=== PATIENT | male | born 1995 | race Caucasian/White ===

== ENCOUNTER 2016-07-31 15:30 | Inpatient (IN) | payer OTHER ==
[~2016-07-31] VITALS: Ht 188 cm; Wt 80.9 kg
[~2016-07-31 15:30] MED LIST: Z.0.NO CURRENT MEDS
[2016-07-31 15:37] VITALS: BP 114/77; PULSE 142; RESP 20; TEMP 98.3; O2SAT 94
[2016-07-31] MEDS ORDERED: SUCR1TAB PO (16:28)
[2016-07-31] MEDS ORDERED: ESOM1CAP16 PO (16:28)
[2016-07-31] MEDS ORDERED: ZOFR8TAB PO (16:29)
[2016-07-31] MEDS ORDERED: SODIUM CHLOR 0.9% 1000 ML INJ 1,000 ML IV SCH (16:48)
--- NOTE | 2016-07-31 16:54 | PD ---
HPI Chief Complaint: Abdominal Pain Time Seen by Provider: 16:54 Travel History International Travel<30 days: No Contact w/Intl Traveler<30days: No Traveled to known affect area: No History of Present Illness HPI 21-year-old male with no significant medical history presents to emergency department for evaluation of abdominal pain mostly right lower quadrant, nausea , vomiting, and generalized weakness. Pt is accompanied by his mother and is stationed at an [employer] up in [place] and began having bloody bowel movements in May of this year. He underwent colonoscopy and was diagnosed with colitis. Patient continued to have symptoms and sought another evaluation from a second cloth layer. He has continued with worsening abdominal pain and nausea and vomiting since then. He underwent endoscopy yesterday that showed several ulcerative lesions and stomach congestion. Biopsies were obtained. Patient has been nauseous and vomiting today. He is increasingly weak. His mom is concerned about his 40 pound weight loss over the last 2 months. Uncertain of fever. Patient has been chilled. Denies any other symptoms at this time. PFSH Past Medical History Medical History: Denies Significant Hx Gastrointestinal Disorders: Yes (colitis, stomach ulcers) Past Surgical History Surgical History: No Previous Surgery Social History Alcohol Use: Yes (occasional) Tobacco Use: No Substance Use: No Allergies-Medications (Allergen,Severity, Reaction): Coded Allergies: Penicillin (Verified Allergy, Intermediate, HIVES, 07/31/16) Reported Meds & Prescriptions Reported Meds & Active Scripts Active Reported Zofran (Ondansetron HCl) 8 Mg Tab 8 Mg PO TID Esomeprazole DR 40 Mg Capdr 40 Mg PO DAILY Sucralfate 1 Gm Tab 1 Gm PO QID on empty stomach Review of Systems Except as stated in HPI: all other systems reviewed are Neg Physical Exam Narrative GENERAL: Thin appearing male patient, lying in bed, in no acute distress. SKIN: Warm and dry. Pallor. Dry mucous membranes. HEAD: Atraumatic. Normocephalic. EYES: Pupils equal and round. No scleral icterus. No injection or drainage. ENT: No nasal bleeding or discharge. Mucous membranes pink and moist. Tongue is coated patches of white. NECK: Trachea midline. No JVD. CARDIOVASCULAR: Tachycardic rate and rhythm. No murmur appreciated. RESPIRATORY: No accessory muscle use. Clear to auscultation. Breath sounds equal bilaterally. GASTROINTESTINAL: Abdomen soft, nondistended. Right upper and lower quadrant tenderness to palpation. No guarding. No rebound tenderness.. Hepatic and splenic margins not palpable. MUSCULOSKELETAL: No obvious deformities. No clubbing. No cyanosis. No edema. NEUROLOGICAL: Lethargic, arousable and alert. No obvious cranial nerve deficits. Motor grossly within normal limits. Normal speech. PSYCHIATRIC: Appropriate mood and affect; insight and judgment normal. Data Data Last Documented VS Vital Signs Date Time Temp Pulse Resp B/P Pulse Ox O2 Delivery O2 Flow Rate FiO2 07/31/16 19:01 111 18 144/85 96 Room Air 07/31/16 15:37 98.3 Orders Complete Blood Count With Diff (07/31/16 16:48) Comprehensive Metabolic Panel (07/31/16 16:48) Lipase (07/31/16 16:48) Lactic Acid (07/31/16 16:48) Prothrombin Time / Inr (Pt) (07/31/16 16:48) Act Partial Throm Time (Ptt) (07/31/16 16:48) Urinalysis - C+S If Indicated (07/31/16 16:48) Ct Abd/Pel W Iv Contrast(Rout) (07/31/16 16:48) Iv Access Insert/Monitor (07/31/16 16:48) Ecg Monitoring (07/31/16 16:48) Oximetry (07/31/16 16:48) Sodium Chlor 0.9% 1000 Ml Inj (Ns 1000 M (07/31/16 16:48) Sodium Chloride 0.9% Flush (Ns Flush) (07/31/16 17:00) Chest, Single Ap (07/31/16 16:48) Abdomen, Flat & Upright (07/31/16 ) Prochlorperazine Inj (Compazine Inj) (07/31/16 17:00) Diphenhydramine Inj (Benadryl Inj) (07/31/16 17:00) Sodium Chlor 0.9% 1000 Ml Inj (Ns 1000 M (07/31/16 17:00) Iohexol 350 Inj (Omnipaque 350 Inj) (07/31/16 18:45) Vancomycin Inj (Vancomycin Inj) (07/31/16 19:15) Levofloxacin 500 Mg Premix Inj (Levaquin (07/31/16 19:15) Sodium Chlor 0.9% 1000 Ml Inj (Ns 1000 M (07/31/16 19:15) Blood Culture (07/31/16 19:23) Monoscreen (07/31/16 19:23) Diet Clear Liquid (07/31/16 Dinner) Admit Order (Ed Use Only) (07/31/16 19:26) Labs Laboratory Tests Test 07/31/16 17:30 White Blood Count 21.9 TH/MM3 Red Blood Count 5.25 MIL/MM3 Hemoglobin 15.6 GM/DL Hematocrit 44.9 % Mean Corpuscular Volume 85.6 FL Mean Corpuscular Hemoglobin 29.8 PG Mean Corpuscular Hemoglobin 34.8 % Concent Red Cell Distribution Width 13.0 % Platelet Count 456 TH/MM3 Mean Platelet Volume 7.1 FL Neutrophils (%) (Auto) 85.2 % Lymphocytes (%) (Auto) 6.3 % Monocytes (%) (Auto) 6.3 % Eosinophils (%) (Auto) 2.0 % Basophils (%) (Auto) 0.2 % Neutrophils # (Auto) 18.6 TH/MM3 Lymphocytes # (Auto) 1.4 TH/MM3 Monocytes # (Auto) 1.4 TH/MM3 Eosinophils # (Auto) 0.4 TH/MM3 Basophils # (Auto) 0.0 TH/MM3 CBC Comment AUTO DIFF Differential Total Cells 100 Counted Neutrophils % (Manual) 60 % Band Neutrophils % 22 % Lymphocytes % 7 % Monocytes % 9 % Eosinophils % 2 % Neutrophils # (Manual) 18.0 TH/MM3 Differential Comment FINAL DIFF MANUAL Platelet Estimate HIGH Platelet Morphology Comment NORMAL Red Cell Morphology Comment NORMAL Prothrombin Time 12.7 SEC Prothromb Time International 1.1 RATIO Ratio Activated Partial 26.9 SEC Thromboplast Time Sodium Level 138 MEQ/L Potassium Level 3.7 MEQ/L Chloride Level 98 MEQ/L Carbon Dioxide Level 29.0 MEQ/L Anion Gap 11 MEQ/L Blood Urea Nitrogen 15 MG/DL Creatinine 1.02 MG/DL Estimat Glomerular Filtration 92 ML/MIN Rate Random Glucose 98 MG/DL Lactic Acid Level 1.1 mmol/L Calcium Level 8.8 MG/DL Total Bilirubin 0.4 MG/DL Aspartate Amino Transf 149 U/L (AST/SGOT) Alanine Aminotransferase 246 U/L (ALT/SGPT) Alkaline Phosphatase 62 U/L Total Protein 6.7 GM/DL Albumin 2.7 GM/DL Lipase 100 U/L [facility] Medical Decision Making Medical Screen Exam Complete: Yes Emergency Medical Condition: Yes Medical Record Reviewed: Yes Differential Diagnosis Gastritis versus gastroenteritis versus influenza versus sepsis versus perforation Narrative Course 21-year-old male presents to the emergency department for evaluation. Patient appears as though he does not feel well but he is without distress. He is tachycardic. He does have right upper and lower quadrant tenderness to palpation without guarding or rebound tenderness. Abdomen flat and upright is normal examination. Chest x-ray's normal examination. CT imaging of the abdomen and pelvis with IV contrast is without acute abnormality. CBC is with leukocytosis of 21.9 with a bandemia of 22, neutrophilia 15.6. CMP is with AST of 149, ALT 246 otherwise unremarkable. Lactic acid is 1.1. Urinalysis is pending. I discussed the patient with my attending physician Dr. Amezquita who recommends giving IV vancomycin and Levaquin agrees the patient should be admitted for further evaluation. I have discussed this with the abrasion to his mother who are also in agreement with this plan of care. I discussed the patient with Dr. Baker resident physician stone polisher hand. Patient will be admitted to the resident service. Sepsis Criteria SIRS Criteria (2 or more): Heart rate over 90, WBC > 50277, < 4000 or > 10% bands Sepsis Criteria (SIRS+source): Infect source susp/known Diagnosis Primary Impression: Abdominal pain Qualified Code: R10.11 - Right upper quadrant abdominal pain Additional Impressions: Nausea & vomiting Qualified Code: R11.2 - Intractable vomiting with nausea, unspecified vomiting type Leukocytosis Qualified Code: D72.825 - Bandemia Sepsis Qualified Code: A41.9 - Sepsis, due to unspecified organism Admitting Information Admitting Physician Requests: Admit Condition: Stable RamiresLilliana joy NANCY Jul 31, 2016 16:54
[2016-07-31] MEDS ORDERED: diphenhydrAMINE HCL 50 MG/ML VIAL IV PUSH ONE (17:00)
[2016-07-31] MEDS ORDERED: PROCHLORPERAZINE INJ 10 MG/2 ML VIAL IVS ONE (17:00)
[2016-07-31] MEDS ORDERED: SODIUM CHLOR 0.9% 1000 ML INJ 1,000 ML IV ONE ×3 (17:00→21:00)
[2016-07-31] MEDS ORDERED: SODIUM CHLORIDE 0.9% FLUSH 10 ML FLUSH IV FLUSH PRN ×3 (17:00→20:45)
--- NOTE | 2016-07-31 17:37 | RADRPT ---
EXAM DATE/TIME: 07/31/2016 17:16 [facility] COMPARISON: No previous studies available for comparison. INDICATIONS : Abdominal pain for since May, intensifying post endoscopy yesterday. MEDICAL HISTORY : Ulcers. SURGICAL HISTORY : None. ENCOUNTER: Initial ACUITY: 3 months PAIN SCORE: 8/10 LOCATION: Right lower abdomen. FINDINGS: A single view of the chest demonstrates the lungs to be symmetrically aerated without evidence of mas s, infiltrate or effusion. The cardiomediastinal contours are unremarkable. Osseous structures are intact. CONCLUSION: Normal examination for a patient of this age. Dustin Fu MD on July 31, 2016 at 17:35 Board Certified Radiologist. This report was verified electronically.
--- NOTE | 2016-07-31 17:38 | RADRPT ---
EXAM DATE/TIME: 07/31/2016 17:17 [facility] COMPARISON: No previous studies available for comparison. INDICATIONS : Abdominal pain for since May, intensifying post endoscopy yesterday. MEDICAL HISTORY : Ulcers. SURGICAL HISTORY : None. ENCOUNTER: Initial ACUITY: 3 months PAIN SCORE: 8/10 LOCATION: Right lower abdomen. FINDINGS: Supine and upright views of the abdomen were performed. The abdominal bowel gas pattern is normal. No air fluid levels are seen. No abnormal masses, calcifications, or organomegaly is seen. The visu alized lower lungs are clear. No evidence of free intraperitoneal gas. The osseous structures are u nremarkable. CONCLUSION: Normal examination. Dustin Fu MD on July 31, 2016 at 17:36 Board Certified Radiologist. This report was verified electronically.
[2016-07-31 17:41] VITALS: RESP 18; O2SAT 97
[2016-07-31 17:54] LABS: AUTOMATED NEUTROPHIL # 18.6 TH/MM3 (1.8-7.7); BASOPHIL % 0.2 % (0.0-2.0); EOSINOPHIL # 0.4 TH/MM3 (0-0.4); HEMATOCRIT 44.9 % (39.0-51.0); LYMPH % 6.3 % (9.0-44.0); LYMPHOCYTE # 1.4 TH/MM3 (1.0-4.8); MEAN CELL VOLUME 85.6 FL (80.0-100.0); MEAN CORPUSCULAR HEMOGLOBIN 29.8 PG (27.0-34.0); MEAN CORPUSCULAR HGB CONC 34.8 % (32.0-36.0); MONO % 6.3 % (0.0-8.0); NEUT % 85.2 % (16.0-70.0); PLATELET COUNT 456 TH/MM3 (150-450); RED BLOOD COUNT 5.25 MIL/MM3 (4.50-5.90); WHITE BLOOD COUNT 21.9 TH/MM3 (4.0-11.0)
[2016-07-31 17:56] LABS: HEMO FLAGS AUTO DIFF
[2016-07-31 18:04] LABS: APTT (PATIENT) 26.9 SEC (24.3-30.1); INTERNATIONAL NORMALIZED RATIO 1.1 RATIO; PROTHROMBIN TIME - PATIENT 12.7 SEC (9.8-11.6)
[2016-07-31 18:19] LABS: ANION GAP 11 MEQ/L (5-15); AST (GOT) 149 U/L (15-37); BLOOD UREA NITROGEN 15 MG/DL (7-18); CHLORIDE 98 MEQ/L (98-107); GLOMERULAR FILTRATION RATE 92 ML/MIN (>89); POTASSIUM 3.7 MEQ/L (3.5-5.1); SODIUM (NA) 138 MEQ/L (136-145)
[2016-07-31 18:22] LABS: ALKALINE PHOSPHATASE 62 U/L (45-117); ALT (GPT) 246 U/L (12-78); TOTAL BILIRUBIN ADULT 0.4 MG/DL (0.2-1.0)
[2016-07-31 18:26] LABS: BANDS 22 % (0-6); EOSINOPHILS 2 % (0-4); PLATELET ESTIMATE SMEAR HIGH (NORMAL); PLATELET MORPHOLOGY NORMAL (NORMAL); POLYS (SEG NEUTROPHILS) 60 % (16-70); SCAN/DIFF FINAL DIFF MANUAL; WBC DIFF SAMPLE 100
[2016-07-31] MEDS ORDERED: IOHEXOL 350 MG/ML 10 ML VIAL (for RAD DIAG) IV ONE (18:45)
[2016-07-31 19:01] VITALS: BP 144/85; PULSE 111; RESP 18; O2SAT 96
[2016-07-31] MEDS ORDERED: LEVOFLOXACIN 500 MG PREMIX INJ 100 ML IV ONE (19:15)
[2016-07-31] MEDS ORDERED: VANCOMYCIN INJ 1,000 MG in SODIUM CHLOR 0.9% 250 ML INJ 250 ML IV ONE (19:15)
--- NOTE | 2016-07-31 19:16 | RADRPT ---
EXAM DATE/TIME: 07/31/2016 18:43 [facility] COMPARISON: No previous studies available for comparison. INDICATIONS : Unexplained weight loss. IV CONTRAST: 70 cc Omnipaque 350 (iohexol) IV ORAL CONTRAST: No oral contrast ingested. RADIATION DOSE: 5.35 CTDIvol (mGy) MEDICAL HISTORY : Ulcerative colitis. SURGICAL HISTORY : None. ENCOUNTER: Initial ACUITY: 1 month PAIN SCALE: 7/10 LOCATION: abdomen TECHNIQUE: Volumetric scanning of the abdomen and pelvis was performed. Using automated exposure control and ad justment of the mA and/or kV according to patient size, radiation dose was kept as low as reasonably achievable to obtain optimal diagnostic quality images. FINDINGS: LOWER LUNGS: The visualized lower lungs are clear. LIVER: Homogeneous density without lesion. There is no dilation of the biliary tree. No calcified gallston es. SPLEEN: Normal size without lesion. PANCREAS: Within normal limits. KIDNEYS: Normal in size and shape. There is no mass, stone or hydronephrosis. ADRENAL GLANDS: Within normal limits. VASCULAR: There is no aortic aneurysm. BOWEL/MESENTERY: The stomach, small bowel, and colon demonstrate no acute abnormality. There is no free intraperitone al air or fluid. ABDOMINAL WALL: Within normal limits. RETROPERITONEUM: There is no lymphadenopathy. BLADDER: No wall thickening or mass. REPRODUCTIVE: Within normal limits. INGUINAL: There is no lymphadenopathy or hernia. MUSCULOSKELETAL: Within normal limits for patient age. CONCLUSION: Normal examination. Dustin Fu MD on July 31, 2016 at 19:09 Board Certified Radiologist. This report was verified electronically.
[2016-07-31 19:48] LABS: BLOOD, URINE NEG (NEG); GLUCOSE,URINE NEG (NEG); KETONE, URINE 40 mg/dL (NEG); MUCUS URINE FEW /lpf (OCC); NITRITE,URINE NEG (NEG); PH, URINE 6.5 (5.0-8.5); URINE COLOR YELLOW (YELLW/STRAW)
[2016-07-31 19:50] LABS: COMMENT (UR) CULT NOT INDICATED; CULTURE IF INDICATED CULT NOT INDICATED
--- NOTE | 2016-07-31 20:27 | HHI.HP ---
HPI Service Family Medicine Primary Care Physician Non-Staff Admission Diagnosis intractable abdominal pain; Nausea/vomiting; leukocytosis; sepsis Diagnoses: International Travel<30 Days: No Contact w/Intl Traveler<30days: No Known Affected Area: No History of Present Illness HPI: Previously healthy 21 y/o male up until 2-3 months ago. He says that 2 months ago May was having loose stools with blood in them and was dx with chew-colitis (ulcerative colitis). He was started on prednsione and mesalamine with no improvement. Had colonoscopy at that time with poor prep. Went back, did more tests, WBCs were 19,000 approximately 3 days, endoscopy yesterday at [facility]: Ulcers in second part of duodenum, ulcers in antrum, erythema and congestion in whole stomach, no esophageal changes - in [place]. Took medication and Gatorade and vomited it up. Took sucralfate and esomeprazole staggered. Took Zofran and this helped minimally. Continuous vomiting since -- not bloody, green bile containing and "white fuzzy". Not projectile. Pain is diffuse currently, but yesterday it was bottom right and periumbilical. Lost 40 lbs in last 2 months. Bloody diarrhea for months - bloody the water. No BM for 2 days, last bloody diarrhea was . Dizzy - blurry vision, hearing gets muffled mainly when he is standing up. Dysphagia + Decreased PO intake, apple sauce. (Clifford Baker MD R2) Review of Systems Other As noted in HPI. (Clifford Baker MD R2) Past Family Social History Past Medical History [facility] 2013 - protazoa infection treated flagyl, recovered. Past Surgical History Denies. (Clifford Baker MD R2) Allergies: Coded Allergies: Penicillin (Verified Allergy, Intermediate, HIVES, 07/31/16) Family History Father - ulcerative colitis, Lialda -- well controlled Mother - healthy Sisters - healthy, 16, 19 y/o. Social History Currently in [employer] Born Born in [place] 2007 moved to [place] EtOH - weekend 4-5 drinks Tob - no tobacco use Illicits - denies (Clifford Baker MD R2) Physical Exam Vital Signs Vital Signs Date Time Temp Pulse Resp B/P Pulse Ox O2 Delivery O2 Flow Rate FiO2 07/31/16 19:01 111 18 144/85 96 Room Air 07/31/16 19:01 18 07/31/16 17:41 18 97 Room Air 07/31/16 15:37 98.3 142 20 114/77 94 Room Air Physical Exam Exam: Gen.: Appears in acute pain. Answering questions. Not lethargic. Head ears eyes nose throat: Tongue with superficial desquamation, and shallow ulcers. No pharyngeal erythema. Uvula midline. No lymphadenopathy. Thyroid normal size. Pupils equal round and reactive. Cranial nerves intact. Cardio vascular: Regular rate and rhythm, sinus tachycardia, brisk pulses to each limb. Respiratory: Clear to auscultation bilaterally. No wheezes or rhonchi. No increased work of breathing. GI: Tender diffusely, no rebound, no guarding, no voluntary guarding, bowel sounds hypoactive, liver edge palpable about 5 cm below the costal margin, no splenomegaly. Neurologic: Alert and oriented 3, moving all extremities, gross sensation intact. Laboratory Laboratory Tests Test 07/31/16 07/31/16 17:30 19:00 White Blood Count 21.9 Red Blood Count 5.25 Hemoglobin 15.6 Hematocrit 44.9 Mean Corpuscular Volume 85.6 Mean Corpuscular Hemoglobin 29.8 Mean Corpuscular Hemoglobin 34.8 Concent Red Cell Distribution Width 13.0 Platelet Count 456 Mean Platelet Volume 7.1 Neutrophils (%) (Auto) 85.2 Lymphocytes (%) (Auto) 6.3 Monocytes (%) (Auto) 6.3 Eosinophils (%) (Auto) 2.0 Basophils (%) (Auto) 0.2 Neutrophils # (Auto) 18.6 Lymphocytes # (Auto) 1.4 Monocytes # (Auto) 1.4 Eosinophils # (Auto) 0.4 Basophils # (Auto) 0.0 CBC Comment AUTO DIFF Differential Total Cells 100 Counted Neutrophils % (Manual) 60 Band Neutrophils % 22 Lymphocytes % 7 Monocytes % 9 Eosinophils % 2 Neutrophils # (Manual) 18.0 Differential Comment FINAL DIFF MANUAL Platelet Estimate HIGH Platelet Morphology Comment NORMAL Red Cell Morphology Comment NORMAL Prothrombin Time 12.7 Prothromb Time International 1.1 Ratio Activated Partial 26.9 Thromboplast Time Sodium Level 138 Potassium Level 3.7 Chloride Level 98 Carbon Dioxide Level 29.0 Anion Gap 11 Blood Urea Nitrogen 15 Creatinine 1.02 Estimat Glomerular Filtration 92 Rate Random Glucose 98 Lactic Acid Level 1.1 Calcium Level 8.8 Total Bilirubin 0.4 Aspartate Amino Transf 149 (AST/SGOT) Alanine Aminotransferase 246 (ALT/SGPT) Alkaline Phosphatase 62 Total Protein 6.7 Albumin 2.7 Lipase 100 Urine Color YELLOW Urine Turbidity CLEAR Urine pH 6.5 Urine Specific [place] 1.026 Urine Protein TRACE Urine Glucose (UA) NEG Urine Ketones 40 Urine Occult Blood NEG Urine Nitrite NEG Urine Bilirubin NEG Urine Urobilinogen LESS THAN 2.0 Urine Leukocyte Esterase NEG Urine WBC 1 Urine Mucus FEW Microscopic Urinalysis Comment CULT NOT INDICATED Date/Time Procedure Status Source Growth 07/31/16 19:30 Aerobic Blood Culture Received Blood Peripheral Pending 07/31/16 19:30 Anaerobic Blood Culture Received Blood Peripheral Pending (Clifford Baker MD R2) Result Diagram: 07/31/16 1730 07/31/16 1730 Imaging Last Impressions Chest X-Ray 07/31/16 1648 Signed Impressions: Service Date/Time: Sunday, July 31, 2016 17:16 - CONCLUSION: Normal examination for a patient of this age. Dustin Fu MD Abdomen/Pelvis CT 07/31/168 Signed Impressions: Service Date/Time: Sunday, July 31, 2016 18:43 - CONCLUSION: Normal examination. Dustin Fu MD Abdomen X-Ray 07/31/16 0000 Signed Impressions: Service Date/Time: Sunday, July 31, 2016 17:17 - CONCLUSION: Normal examination. Dustin Fu MD (Clifford Baker MD R2) Assessment and Plan Assessment and Plan Curt Engel 21 y/o male with no significant PMHx presenting with 3 months of bloody diarrhea, weight loss of 40 pounds, and persistent abdominal pain. Recent endoscopy on 07/03/2016 in [place], showed multiple ulcerations in the gastric antrum, and second portion of the duodenum. It also showed an erythematous gastric mucosa. Lab work was significant for a leukocytosis of 21, 000, with a left shift as well as a mild elevation in LFTs. He was given 2 L normal saline in the ED, started on maintenance therapy, pain control with morphine, and IV antibiotics. Gastroenterology will be consulted and we appreciate the recommendations. Comment #1: Persistent nausea and vomiting Likely secondary to inflammatory bowel disease (ulcerative colitis, Crohns disease), intra-abdominal infection, versus infectious gastroenteritis. On exam he is diffusely tender. CT of abdomen showed a normal exam. Hemoccult was negative on exam. Lipase and lactic acid were both within normal limits. Plan as follows: -Zofran 4 mg IV every 6 hours when necessary nausea and vomiting. -Empiric antibiotics started in the emergency department: vancomycin 1 g IV, as well as Levaquin 500 mg IV 1. Well transition to ciprofloxacin 400 mg IV every 12 hours, as well as Flagyl 500 mg every 8 hours IV. -Stool studies, including ova and parasites, enteric pathogens, and WBCs. -Consulted gastroenterology we appreciate the recommendations. -Nothing by mouth until evaluated by gastroenterology. -Pantoprazole 40 mg IV twice a day, scheduled. -Oxycodone-acetaminophen 5 mg every 4 hours; Dilaudid 1 mg IV every 3 hours pain 6-10 -Blood cultures 2. Problem #2: Elevated Liver Transaminase Levels AST / ALT = 148, 246 respectively Bilirubin and alk Phos wnl. Continue to trend, IVF as above. Avoid hepatotoxic drugs. Hepatitis Panel to r/o Acute Hep B and Hep C. Problem # 3: FEN 150 ML/hour normal saline Electrolytes At goal Nothing by mouth until evaluated by GI DVT prophylaxis: Lovenox 40 mg subcutaneous every [address] Espinosa Code Status Full Code. (Clifford Baker MD R2) Attending Attestation THIS CASE WAS DISCUSSED WITH THE RESIDENT PHYSICIANS. I HAVE REVIEWED THE RECORD AND AGREE WITH THE ABOVE NOTE AND PLAN OF CARE WAS DISCUSSED. I HAVE AUTHORIZED THE ORDER FOR ADMISSION TO AN IN-PATIENT STATUS. (Marcos Espinosa MD) Problem List: (1) Abdominal pain Status: Acute (2) Nausea & vomiting Status: Acute (3) Leukocytosis Status: Acute (4) LFT elevation Status: Acute (5) Sepsis Status: Acute (Clifford Baker MD R2) Physician Certification 2 Midnight Certification Type: Admission for Inpatient Services Order for Inpatient Services The services are ordered in accordance with Medicare regulations or non- Medicare payer requirements, as applicable. In the case of services not specified as inpatient-only, they are appropriately provided as inpatient services in accordance with the 2-midnight benchmark. Estimated LOS (days): 2 2 days is the estimated time the patient will need to remain in the hospital, assuming treatment plan goals are met and no additional complications. Post-Hospital Plan: Home (Clifford Baker MD R2) Problem Qualifiers (1) Abdominal pain: Qualified Code: R10.11 - Right upper quadrant abdominal pain (2) Nausea & vomiting: Qualified Code: R11.2 - Intractable vomiting with nausea, unspecified vomiting type (3) Leukocytosis: Qualified Code: D72.825 - Bandemia (4) Sepsis: Qualified Code: A41.9 - Sepsis, due to unspecified organism Clifford Baker MD R2 Jul 31, 2016 20:26 Marcos Espinosa MD Aug 01, 2016 12:20
[2016-07-31] MEDS ORDERED: HYDROmorphone HCL PF 1 MG/ML VIAL IV PRN (20:45)
[2016-07-31] MEDS ORDERED: NALOXONE HCL 0.4 MG/ML AMP IV PRN (20:45)
[2016-07-31] MEDS ORDERED: MORPHINE SULFATE 4 MG/ML INJ IV PUSH ONE (21:00)
[2016-07-31] MEDS ORDERED: SODIUM CHLORIDE 0.9% FLUSH 10 ML FLUSH IV FLUSH SCH (21:00)
[2016-07-31 21:02] VITALS: BP 145/87; PULSE 109; RESP 19; TEMP 98.4; O2SAT 96
[2016-07-31] MEDS: SODIUM CHLORIDE 0.9% FLUSH 10 ML FLUSH IV FLUSH SCH (21:22)
[2016-07-31] MEDS: PANTOPRAZOLE SODIUM 40 MG VIAL IV SCH (21:27)
[2016-07-31 22:00] VITALS: BP 157/96; PULSE 96; RESP 17; TEMP 97.7; O2SAT 97
[2016-07-31] MEDS: SODIUM CHLOR 0.9% 1000 ML INJ 1,000 ML IV SCH (22:00)
[2016-07-31] MEDS: ENOXAPARIN SODIUM 40 MG/0.4 ML SYRINGE SQ SCH (22:22)
[2016-08-01] MEDS: HYDROmorphone HCL PF 1 MG/ML VIAL IV PRN ×5 (02:33→17:55)
[2016-08-01] MEDS: metroNIDAZOLE 500 MG INJ 100 ML IV SCH ×3 (02:33→17:31)
[2016-08-01] MEDS: CIPROFLOXACIN 400 MG PREMIX 200 ML IV SCH ×2 (03:57→16:01)
[2016-08-01 04:00] VITALS: BP 162/98; PULSE 98; RESP 17; TEMP 96.8; O2SAT 97
[2016-08-01] MEDS: SODIUM CHLOR 0.9% 1000 ML INJ 1,000 ML IV SCH ×3 (04:40→16:02)
[2016-08-01 07:50] VITALS: BP 149/92; PULSE 108; RESP 20; TEMP 98.2; O2SAT 97
[2016-08-01 08:07] LABS: ALKALINE PHOSPHATASE 45 U/L (45-117); ALT (GPT) 180 U/L (12-78); ANION GAP 8 MEQ/L (5-15); AST (GOT) 73 U/L (15-37); BICARBONATE 24.8 MEQ/L (21.0-32.0); BLOOD UREA NITROGEN 11 MG/DL (7-18); CHLORIDE 106 MEQ/L (98-107); GLOMERULAR FILTRATION RATE 164 ML/MIN (>89); POTASSIUM 3.6 MEQ/L (3.5-5.1); SODIUM (NA) 139 MEQ/L (136-145); TOTAL BILIRUBIN ADULT 0.3 MG/DL (0.2-1.0)
[2016-08-01 08:57] LABS: AUTOMATED NEUTROPHIL # 18.9 TH/MM3 (1.8-7.7); BASOPHIL # 0.1 TH/MM3 (0-0.2); BASOPHIL % 0.2 % (0.0-2.0); EOSINOPHIL # 0.6 TH/MM3 (0-0.4); EOSINOPHIL % 2.7 % (0.0-4.0); HEMATOCRIT 39.5 % (39.0-51.0); HEMO FLAGS DIFF FINAL; LYMPH % 7.1 % (9.0-44.0); LYMPHOCYTE # 1.6 TH/MM3 (1.0-4.8); MEAN CELL VOLUME 87.2 FL (80.0-100.0); MEAN CORPUSCULAR HEMOGLOBIN 30.3 PG (27.0-34.0); MEAN CORPUSCULAR HGB CONC 34.8 % (32.0-36.0); MONO % 7.2 % (0.0-8.0); NEUT % 82.8 % (16.0-70.0); PLATELET COUNT 348 TH/MM3 (150-450); RED BLOOD COUNT 4.53 MIL/MM3 (4.50-5.90); RED CELL DISTRIBUTION WIDTH 12.8 % (11.6-17.2); WHITE BLOOD COUNT 22.9 TH/MM3 (4.0-11.0)
[2016-08-01] MEDS: SODIUM CHLORIDE 0.9% FLUSH 10 ML FLUSH IV FLUSH SCH ×2 (09:00→21:00)
[2016-08-01] MEDS: PANTOPRAZOLE SODIUM 40 MG VIAL IV SCH ×2 (09:03→21:31)
--- NOTE | 2016-08-01 10:34 | PD.CONS ---
HPI History of Present Illness Mr. Wheeler is a typically healthy 21 y/o male up until 3 months ago. He states that in May 2016 he began having bloody diarrhea upwards of 30 times per day and abdominal pain. He was reportedly seen at a hospital in [place] and had a colonoscopy performed which he reports was dx with chew- colitis (ulcerative colitis) but reports that in was an inadequate prep. He was started on a short taper of Prednisone and mesalamine with no improvement. He states that he was on steroids for about 5 days and took the Mesalamine (Apriso ) as prescribed for about a month but then was not taking as prescribed after that as he developed nausea/vomiting about 1 month ago. He states that he continued to have bloody diarrhea but the frequency decreased to around 10 times per day but the nausea/vomiting seemed to worsen. He was seen by a different GI physician at [facility] last week and at that time his WBCs were 19,000. He had an EGD on 07/30 which noted ulcers in second part of duodenum, ulcers in antrum, erythema and congestion in whole stomach, no esophageal changes. He was prescribed esomeprazole and Carafate. He came home yesterday to see his parents but was unable to keep his medications down. Took Zofran and this helped minimally. His last BM was on , 07/29/16 but has had flatus. Pt describes his abdominal pain as diffuse but worse in the upper abdomen and right upper quadrant. He has had unintentional weight loss of about 40 lbs in last 2 months. He has had reported dysphagia intermittently to solids and decreased PO intake. He marlen any fevers or chills. Denies any recent travel. Denies any ill contacts. (Renu Doll) [facility] Past Medical History Infectious diarrhea, Protazoa infection treated flagyl, recovered, in 2013 Past Surgical History Colonoscopy in May 2016 in [place] EGD on 07/30/16 which noted ulcers in second part of duodenum, ulcers in antrum, erythema and congestion in whole stomach, no esophageal changes. (Renu Doll) Coded Allergies: Penicillin (Verified Allergy, Intermediate, HIVES, 07/31/16) Medications Zofran (Ondansetron HCl) 8 Mg Tab 8 Mg PO TID Esomeprazole DR 40 Mg Capdr 40 Mg PO DAILY Sucralfate 1 Gm Tab 1 Gm PO QID on empty stomach Family History Father - ulcerative colitis, Lialda -- well controlled Mother - healthy Sisters - healthy, 16, 19 y/o. Social History Currently in [place], stationed in [place] Born in [place] Moved to [place] in 2007 EtOH - weekend 4-5 drinks Tob - no tobacco use Illicit - denies (Renu Doll) Review of Systems Constitutional: COMPLAINS OF: Weight loss, Change in appetite, DENIES: Fever, Chills, Night Sweats Respiratory: DENIES: Shortness of breath Cardiovascular: DENIES: Chest pain, Lower Extremity Edema Gastrointestinal: COMPLAINS OF: Abdominal pain, Bloody stools, Diarrhea, Nausea , Vomiting, Difficulty Swallowing, DENIES: Odynophagia, Hematemesis Genitourinary: DENIES: Hematuria Musculoskeletal: DENIES: Stiffness Integumentary: DENIES: Rash Neurologic: DENIES: Localized weakness (Renu Doll) GI Exam Vitals I&O Vital Signs Date Time Temp Pulse Resp B/P Pulse Ox O2 Delivery O2 Flow Rate FiO2 08/01/16 07:50 98.2 108 20 149/92 97 08/01/16 07:01 19 08/01/16 04:00 96.8 98 17 162/98 97 07/31/16 23:17 20 07/31/16 22:00 97.7 96 17 157/96 97 07/31/16 21:56 20 07/31/16 21:02 98.4 109 19 145/87 96 Room Air 07/31/16 19:01 111 18 144/85 96 Room Air 07/31/16 19:01 18 07/31/16 17:41 18 97 Room Air 07/31/16 15:37 98.3 142 20 114/77 94 Room Air I/O 07/31/16 07/31/16 07/31/16 08/01/16 08/01/16 08/01/16 07:00 15:00 23:00 07:00 15:00 23:00 Intake Total 1156 ml Balance 1156 ml Intake Oral 60 ml IV Total 1096 ml # Bowel Movements 0 Imaging Last Impressions Chest X-Ray 07/31/16 1648 Signed Impressions: Service Date/Time: Sunday, July 31, 2016 17:16 - CONCLUSION: Normal examination for a patient of this age. Dustin Fu MD Abdomen/Pelvis CT 07/31/16 1648 Signed Impressions: Service Date/Time: Sunday, July 31, 2016 18:43 - CONCLUSION: Normal examination. Dustin Fu MD Abdomen X-Ray 07/31/16 0000 Signed Impressions: Service Date/Time: Sunday, July 31, 2016 17:17 - CONCLUSION: Normal examination. Dustin Fu MD Laboratory Test 07/31/16 07/31/16 07/31/16 08/01/16 17:30 19:00 19:30 07:16 White Blood Count 21.9 TH/MM3 22.9 TH/MM3 Red Blood Count 5.25 MIL/MM3 4.53 MIL/MM3 Hemoglobin 15.6 GM/DL 13.7 GM/DL Hematocrit 44.9 % 39.5 % Mean Corpuscular Volume 85.6 FL 87.2 FL Mean Corpuscular Hemoglobin 29.8 PG 30.3 PG Mean Corpuscular Hemoglobin 34.8 % 34.8 % Concent Red Cell Distribution Width 13.0 % 12.8 % Platelet Count 456 TH/MM3 348 TH/MM3 Mean Platelet Volume 7.1 FL 7.0 FL Neutrophils (%) (Auto) 85.2 % 82.8 % Lymphocytes (%) (Auto) 6.3 % 7.1 % Monocytes (%) (Auto) 6.3 % 7.2 % Eosinophils (%) (Auto) 2.0 % 2.7 % Basophils (%) (Auto) 0.2 % 0.2 % Neutrophils # (Auto) 18.6 TH/MM3 18.9 TH/MM3 Lymphocytes # (Auto) 1.4 TH/MM3 1.6 TH/MM3 Monocytes # (Auto) 1.4 TH/MM3 1.7 TH/MM3 Eosinophils # (Auto) 0.4 TH/MM3 0.6 TH/MM3 Basophils # (Auto) 0.0 TH/MM3 0.1 TH/MM3 CBC Comment AUTO DIFF DIFF FINAL Differential Total Cells 100 Counted Neutrophils % (Manual) 60 % Band Neutrophils % 22 % Lymphocytes % 7 % Monocytes % 9 % Eosinophils % 2 % Neutrophils # (Manual) 18.0 TH/MM3 Differential Comment FINAL DIFF MANUAL Platelet Estimate HIGH Platelet Morphology Comment NORMAL Red Cell Morphology Comment NORMAL Erythrocyte Sedimentation Rate 5 mm/hr Prothrombin Time 12.7 SEC Prothromb Time International 1.1 RATIO Ratio Activated Partial 26.9 SEC Thromboplast Time Sodium Level 138 MEQ/L 139 MEQ/L Potassium Level 3.7 MEQ/L 3.6 MEQ/L Chloride Level 98 MEQ/L 106 MEQ/L Carbon Dioxide Level 29.0 MEQ/L 24.8 MEQ/L Anion Gap 11 MEQ/L 8 MEQ/L Blood Urea Nitrogen 15 MG/DL 11 MG/DL Creatinine 1.02 MG/DL 0.62 MG/DL Estimat Glomerular Filtration 92 ML/MIN 164 ML/MIN Rate Random Glucose 98 MG/DL 108 MG/DL Lactic Acid Level 1.1 mmol/L Calcium Level 8.8 MG/DL 7.9 MG/DL Total Bilirubin 0.4 MG/DL 0.3 MG/DL Aspartate Amino Transf 149 U/L 73 U/L (AST/SGOT) Alanine Aminotransferase 246 U/L 180 U/L (ALT/SGPT) Alkaline Phosphatase 62 U/L 45 U/L Total Protein 6.7 GM/DL 4.9 GM/DL Albumin 2.7 GM/DL 2.0 GM/DL Lipase 100 U/L Urine Color YELLOW Urine Turbidity CLEAR Urine pH 6.5 Urine Specific [place] 1.026 Urine Protein TRACE mg/dL Urine Glucose (UA) NEG mg/dL Urine Ketones 40 mg/dL Urine Occult Blood NEG Urine Nitrite NEG Urine Bilirubin NEG Urine Urobilinogen LESS THAN 2.0 MG/DL Urine Leukocyte Esterase NEG Urine WBC 1 /hpf Urine Mucus FEW /lpf Microscopic Urinalysis Comment CULT NOT INDICATED Monoscreen NEG C-Reactive Protein 3.60 MG/DL Date/Time Procedure Status Source Growth 07/31/16 19:30 Aerobic Blood Culture Received Blood Peripheral Pending 07/31/16 19:30 Anaerobic Blood Culture Received Blood Peripheral Pending Physical Examination HEENT: Pupils round and reactive to light; normocephalic; atraumatic; no jaundice. Throat is clear. NECK: Neck is supple, no JVD, no lymphadenopathy. CHEST: CTA CARDIAC: Regular rhythm, tachy ABDOMEN: +BS, soft nondistended, diffusely tender worse in the upper abdomen and right side. EXTREMITIES: No clubbing, cyanosis, or edema. SKIN: Normal; no rash; no jaundice. DISTRICT WILDLIFE MANAGER: No focal deficits; alert and oriented times three. (Renu Doll) Assessment and Plan Plan ASSESSMENT: - Bloody diarrhea, abdominal pain, intractably nausea/vomiting x 2-3 months. Unclear if this is infectious vs. inflammatory vs. other process. Symptoms began in May 2016 with bloody diarrhea upwards of 30 times per day and abdominal pain. He was reportedly seen at a hospital in [place] and had a colonoscopy performed which he reports was dx with chew- colitis (ulcerative colitis) but reports that in was an inadequate prep. He was started on a short taper of Prednisone (~5 days) and mesalamine (Apriso) . He took the Apriso as prescribed for about a month but then was not taking as prescribed after that as he developed nausea/vomiting about 1 month ago. He states that he continued to have bloody diarrhea but the frequency decreased to around 10 times per day but the nausea/vomiting seemed to worsen. He was seen by a different GI physician at [facility] last week and at that time his WBCs were 19,000. He had an EGD on 07/30 which noted ulcers in second part of duodenum, ulcers in antrum, erythema and congestion in whole stomach, no esophageal changes. He was prescribed esomeprazole and Carafate. No BM in 3 days. +Flatus. CT Abd/pelvis (07/31) --> Normal examination. Pt with noted leukocytosis 22,000 today with left shift. CRP elevated at 3.60. +Family hx of UC. Pt is currently on Cipro. Flagyl. IVF. PPI IV BID. Zofran PRN. Stool studies ordered. - Elevated LFTs. Etiology unclear. Viral hepatitis panel is pending. Tbili and Alkphos are WNL. Labs are improving. PLAN: - Obtain records from recent colonoscopy including procedure report and pathology. - Cont. Cipro/Flagyl - Protonix 40mg IV BID - IVF - Clear liquids as tolerated - Stool studies are ordered but pt has not had a BM in 3 days. - KUB in AM - Celiac panel - Await viral hepatitis panel - HIV is pending. - The pt may need repeat colonoscopy once he is stable and tolerating oral intake but we need to review his previous recent colonoscopy report and pathology. - Supportive care - Further recs as the case develops - The pt was seen and examined by myself and Dr. Lin, this note was written on her behalf. (Renu Doll) Physician Comments seen, examined agree with above may need repeat egd/colon fu stool studies sed rate, c reactive protein \celiac panel (Cheyanne Lin MD) Renu Doll Aug 01, 2016 10:34 Cheyanne Lin MD Aug 01, 2016 16:44
[2016-08-01 12:00] VITALS: BP 131/89; PULSE 104; RESP 20; TEMP 97; O2SAT 96
--- NOTE | 2016-08-01 12:20 | HHI.FPPN ---
Subjective Remarks Patient reports doing a little bit better this morning, notes that the abdominal pain is improved with the current pain regimen and he rates it now is a "5/10". He has not had any episodes of emesis this morning. He has not had a bowel movement since presenting to the hospital. He has gotten on the toilet several times to attempt having a bowel movement but nothing has been able to come out. Continues to have epigastric abdominal pain but this is improved. Yesterday evening he was able to drink some liquids and eat some applesauce without any episodes of emesis. He denies fevers or chills, denies chest pain or palpitations, denies headache or vision changes. In summary this is a 21-year-old male who was previously helped with the up until 2 months ago at which time he developed profuse bloody diarrhea with abdominal pain. He was evaluated at that time at a [facility] that he states performed a colonoscopy and was diagnosed with pancolitis and treated as ulcerative colitis. He was on a prednisone taper with mesalamine with no significant improvement. He then had a workup in [place] at which time it was noted that he had an elevated white blood cell count of 19,000 and had an upper endoscopy that showed ulcerations in the duodenal and in the stomach. He was treated with sucralfate and esomeprazole as well as Zofran prior to presenting to our emergency department. Endorses continued vomiting with upper abdominal pain on the day of presentation. Bowel movements have slowed down and he has not had a bowel movement in 3 days. He also does note a 40 pound weight loss in the last 2-3 months. Past Medical History [facility] 2013 - protazoa infection treated flagyl, recovered. Past Surgical History Denies. Family History Father - ulcerative colitis, Lialda -- well controlled Mother - healthy Sisters - healthy, 16, 19 y/o. Social History Currently in [employer] Born Born in [place] 2007 moved to [place] EtOH - weekend 4-5 drinks Tob - no tobacco use Illicits - denies Objective Vitals Vital Signs Date Time Temp Pulse Resp B/P Pulse Ox O2 Delivery O2 Flow Rate FiO2 08/01/16 07:50 98.2 108 20 149/92 97 08/01/16 07:01 19 08/01/16 04:00 96.8 98 17 162/98 97 07/31/16 23:17 20 07/31/16 22:00 97.7 96 17 157/96 97 07/31/16 21:56 20 07/31/16 21:02 98.4 109 19 145/87 96 Room Air 07/31/16 19:01 111 18 144/85 96 Room Air 07/31/16 19:01 18 07/31/16 17:41 18 97 Room Air 07/31/16 15:37 98.3 142 20 114/77 94 Room Air I/O 07/31/16 07/31/16 07/31/16 08/01/16 08/01/16 08/01/16 07:00 15:00 23:00 07:00 15:00 23:00 Intake Total 1156 ml Balance 1156 ml Intake Oral 60 ml IV Total 1096 ml # Bowel Movements 0 Result Diagram: 08/01/16 0716 08/01/16 0716 Imaging Last 48 hours Impressions Chest X-Ray 07/31/16 1648 Signed Impressions: Service Date/Time: Sunday, July 31, 2016 17:16 - CONCLUSION: Normal examination for a patient of this age. Dustin Fu MD Abdomen/Pelvis CT 07/31/16 1648 Signed Impressions: Service Date/Time: Sunday, July 31, 2016 18:43 - CONCLUSION: Normal examination. Dustin Fu MD Abdomen X-Ray 07/31/16 0000 Signed Impressions: Service Date/Time: Sunday, July 31, 2016 17:17 - CONCLUSION: Normal examination. Dustin Fu MD Objective Remarks Gen.: Well-nourished appearing young male lying in bed, no obvious distress, appears comfortable HEENT: Tongue with superficial desquamation, and shallow ulcers. No pharyngeal erythema. Uvula midline. No lymphadenopathy. CV: Regular rate and rhythm, sinus tachycardia, brisk pulses to each limb. Pulmonary:: Clear to auscultation bilaterally. No wheezes or rhonchi. No increased work of breathing. GI: Tender diffusely in upper abdomen, no rebound, no guarding, no voluntary guarding, bowel sounds hypoactive Neurologic: Alert and oriented 3, moving all extremities, gross sensation intact. A/P Assessment and Plan 21-year-old male presenting with abdominal pain, nausea/vomiting, bright red blood per rectum with possible inflammatory bowel syndrome Problem List: (1) Abdominal pain Status: Acute Plan: GI consulted and appreciate recommendations - Continue ciprofloxacin and Flagyl - Blood cultures ordered and pending - Protonix 40 mg IV twice a day - KUB ordered for the morning of 08/02 - Celiac panel ordered and pending - HIV pending - Viral hepatitis panel pending - Stool studies ordered and pending Patient may require repeat colonoscopy - Records requested for recent colonoscopy including procedure report and pathology Continue IV fluids with normal saline at 150 mL/hour - Follow daily BMPs Diet with clear liquids and advance as tolerated Pain control as below: -Oxycodone-acetaminophen 5 mg every 4 hours; Dilaudid 1 mg IV every 3 hours pain 6-10 (2) Nausea & vomiting Status: Acute Plan: Treatment for abdominal pain as above including Zofran 4 mg every 6 hours as needed (3) Leukocytosis Status: Acute Plan: Workup for abdominal pain as above Blood cultures 2 ordered and pending Continue empiric antibiotics as above (4) LFT elevation Status: Acute Plan: Viral hepatitis panel pending GI following Problem Qualifiers (1) Abdominal pain: Qualified Code: R10.11 - Right upper quadrant abdominal pain (2) Nausea & vomiting: Qualified Code: R11.2 - Intractable vomiting with nausea, unspecified vomiting type (3) Leukocytosis: Qualified Code: D72.825 - Marcos Carroll MD Aug 01, 2016 12:20
[2016-08-01 16:00] VITALS: BP 135/77; PULSE 102; RESP 18; TEMP 97; O2SAT 98
[2016-08-01 20:00] VITALS: BP 115/79; PULSE 131; RESP 18; TEMP 97.1; O2SAT 98
[2016-08-01 20:40] LABS: C. DIFF EPI 027 PRESUMPTIVE NEGATIVE (NEGATIVE); C. DIFF TOXIN PCR NEGATIVE (NEGATIVE)
[2016-08-01] MEDS: ENOXAPARIN SODIUM 40 MG/0.4 ML SYRINGE SQ SCH (21:31)
[2016-08-02] VITALS: BP 128/76; PULSE 114; RESP 17; TEMP 97.3; O2SAT 99
[2016-08-02] MEDS: SODIUM CHLOR 0.9% 1000 ML INJ 1,000 ML IV SCH ×4 (00:40→19:24)
[2016-08-02] MEDS: metroNIDAZOLE 500 MG INJ 100 ML IV SCH ×3 (01:44→19:15)
[2016-08-02] MEDS: HYDROmorphone HCL PF 1 MG/ML VIAL IV PRN ×4 (01:44→20:54)
[2016-08-02 04:00] VITALS: BP 136/77; PULSE 120; RESP 17; TEMP 97.6; O2SAT 99
[2016-08-02] MEDS: CIPROFLOXACIN 400 MG PREMIX 200 ML IV SCH ×2 (04:10→16:21)
[2016-08-02 06:30] LABS: AUTOMATED NEUTROPHIL # 17.2 TH/MM3 (1.8-7.7); BASOPHIL % 0.2 % (0.0-2.0); EOSINOPHIL # 0.4 TH/MM3 (0-0.4); EOSINOPHIL % 2.1 % (0.0-4.0); HEMATOCRIT 39.4 % (39.0-51.0); HEMO FLAGS DIFF FINAL; LYMPH % 6.3 % (9.0-44.0); LYMPHOCYTE # 1.3 TH/MM3 (1.0-4.8); MEAN CELL VOLUME 86.7 FL (80.0-100.0); MEAN CORPUSCULAR HEMOGLOBIN 29.7 PG (27.0-34.0); MEAN CORPUSCULAR HGB CONC 34.2 % (32.0-36.0); MONO % 8.1 % (0.0-8.0); NEUT % 83.3 % (16.0-70.0); PLATELET COUNT 347 TH/MM3 (150-450); RED BLOOD COUNT 4.54 MIL/MM3 (4.50-5.90); RED CELL DISTRIBUTION WIDTH 13.1 % (11.6-17.2); WHITE BLOOD COUNT 20.6 TH/MM3 (4.0-11.0)
[2016-08-02 06:50] LABS: ALKALINE PHOSPHATASE 48 U/L (45-117); ALT (GPT) 135 U/L (12-78); ANION GAP 8 MEQ/L (5-15); AST (GOT) 38 U/L (15-37); BICARBONATE 27.6 MEQ/L (21.0-32.0); BLOOD UREA NITROGEN 12 MG/DL (7-18); CHLORIDE 103 MEQ/L (98-107); GLOMERULAR FILTRATION RATE 107 ML/MIN (>89); POTASSIUM 3.8 MEQ/L (3.5-5.1); SODIUM (NA) 139 MEQ/L (136-145); TOTAL BILIRUBIN ADULT 0.2 MG/DL (0.2-1.0)
[2016-08-02] MEDS: ONDANSETRON HCL 4 MG/2 ML VIAL IVP PRN (07:50)
[2016-08-02] MEDS: PANTOPRAZOLE SODIUM 40 MG VIAL IV SCH ×2 (07:50→20:19)
[2016-08-02] MEDS: SODIUM CHLORIDE 0.9% FLUSH 10 ML FLUSH IV FLUSH SCH ×2 (07:51→20:19)
[2016-08-02 08:00] VITALS: BP 126/80; PULSE 99; RESP 16; TEMP 98.8; O2SAT 98
--- NOTE | 2016-08-02 09:02 | RADRPT ---
EXAM DATE/TIME: 08/02/2016 09:07 [facility] COMPARISON: No previous studies available for comparison. INDICATIONS : Nausea, vomiting, diarrhea, abdominal pain. MEDICAL HISTORY : Colitis, ulcers. SURGICAL HISTORY : None. ENCOUNTER: Subsequent ACUITY: 2 months PAIN SCORE: 4/10 LOCATION: entire abdomen. FINDINGS: Supine view of the abdomen was performed. The abdominal bowel gas pattern is normal. No abnormal ma sses, calcifications, or organomegaly is seen. The osseous structures are unremarkable. CONCLUSION: No acute disease. Berry Christine MD FACR on August 02, 2016 at 8:58 Board Certified Radiologist. This report was verified electronically.
--- NOTE | 2016-08-02 10:25 | HHI.FPPN ---
Subjective Remarks No acute overnight events reported. No vomiting in over 24 hours, however, did have nausea this morning and continues to have dark brown liquid stools. He continues to have diffuse abdominal pain, unchanged. He denies fevers, chills, new rashes, difficulty swallowing. He is tolerating clear liquids, had chicken broth and water last night and continues to drink water today. (Gerda Mendoza MD R1) Objective Vitals Vital Signs Date Time Temp Pulse Resp B/P Pulse Ox O2 Delivery O2 Flow Rate FiO2 08/02/16 08:00 98.8 99 16 126/80 98 08/02/16 04:00 97.6 120 17 136/77 99 08/02/16 00:00 97.3 114 17 128/76 99 08/01/16 20:00 97.1 131 18 115/79 98 08/01/16 16:00 97.0 102 18 135/77 98 08/01/16 12:00 97.0 104 20 131/89 96 I/O 08/01/16 08/01/16 08/01/16 08/02/16 08/02/16 08/02/16 07:00 15:00 23:00 07:00 15:00 23:00 Intake Total 1156 ml 1050 ml 240 ml 60 ml 1964 ml Balance 1156 ml 1050 ml 240 ml 60 ml 1964 ml Intake Oral 60 ml 240 ml 60 ml IV Total 1096 ml 1050 ml 1964 ml # Voids 3 2 # Bowel Movements 0 4 2 (Gerda Mendoza MD R1) Result Diagram: 08/02/16 0555 08/02/16 0555 Imaging Last 72 hours Impressions Abdomen X-Ray 08/02/16 0600 Signed Impressions: Service Date/Time: Tuesday, August 02, 2016 09:07 - CONCLUSION: No acute disease. Berry Christine MD FACR Chest X-Ray 07/31/168 Signed Impressions: Service Date/Time: Sunday, July 31, 2016 17:16 - CONCLUSION: Normal examination for a patient of this age. Dustin Fu MD Abdomen/Pelvis CT 07/31/[id number] Signed Impressions: Service Date/Time: Sunday, July 31, 2016 18:43 - CONCLUSION: Normal examination. Dustin Fu MD Abdomen X-Ray 07/31/16 0000 Signed Impressions: Service Date/Time: Sunday, July 31, 2016 17:17 - CONCLUSION: Normal examination. Dustin Fu MD Objective Remarks Gen.: Well-nourished appearing young male walking around the room and subsequently sitting up in bed, no obvious distress, appears comfortable HEENT: Tongue with superficial desquamation, and shallow ulcers. No pharyngeal erythema. Uvula midline. No lymphadenopathy. CV: Regular rate and rhythm, sinus tachycardia, brisk pulses to each limb. Pulmonary:: Clear to auscultation bilaterally. No wheezes or rhonchi. No increased work of breathing. GI: Tender diffusely in upper abdomen, no rebound, no guarding, no voluntary guarding, bowel sounds hyperactive today. Neurologic: Alert and oriented 3, moving all extremities, gross sensation intact. Medications and IVs Inpatient Medications Ciprofloxacin/ Dextrose (Cipro 400 Mg Premix) 200 ml @ 200 mls/hr Q12H IV Last administered on 08/02/16 04:10; Start 08/01/16 at 04:00 Diphenhydramine HCl 25 mg 25 mg ONCE ONCE IV PUSH Last administered on 17:40; Start 07/31/16 at 17:00; Stop 07/31/16 at 17:01; Status DC Enoxaparin Sodium (Lovenox Inj) 40 mg Q24H SQ Last administered on 08/01/16 21 :31; Start 07/31/16 at 22:00 Hydromorphone HCl (Dilaudid Pf Inj) 1 mg Q4H PRN IV PAIN SCALE 6 TO 10 Last administered on 07/31/16 22:12; Start 07/31/16 at 20:45; Stop 08/01/16 at 02:38 ; Status DC Hydromorphone HCl 1 mg 1 mg Q3H PRN IV PAIN SCALE 6 TO 10 Last administered on 08/02/16 01:44; Start 08/01/16 at 02:38 Levofloxacin/ Dextrose (Levaquin 500 Mg Premix Inj) 100 ml @ 100 mls/hr ONCE ONCE IV Last administered on 07/31/16 19:27; Start 07/31/16 at 19:15; Stop at 20:14; Status DC Metronidazole 100 ml @ 100 mls/hr Q8H IV Last administered on 08/02/16 01:44 ; Start 08/01/16 at 03:00 Morphine Sulfate (Morphine Inj) 4 mg ONCE ONCE IV PUSH Last administered on 21:23; Start 07/31/16 at 21:00; Stop 07/31/16 at 21:08; Status DC Naloxone HCl (Narcan Inj) 0.4 mg UNSCH PRN IV SEE LABEL COMMENTS; Start at 20:45 Ondansetron HCl (Zofran Inj) 4 mg Q6H PRN IVP NAUSEA OR VOMITING Last administered on 08/02/16 07:50; Start 07/31/16 at 20:45 Oxycodone/ Acetaminophen (Percocet 5-325 Mg) 1 tab Q4H PRN PO PAIN SCALE 1 TO 5; Start 07/31/16 at 20:45 Pantoprazole Sodium 40 mg 40 mg BID IV Last administered on 08/02/16 07:50; Start 07/31/16 at 21:00 Prochlorperazine Edisylate (Compazine Inj) 5 mg ONCE ONCE IVS Last administered on 07/31/16 17:41; Start 07/31/16 at 17:00; Stop 07/31/16 at 17:01 ; Status DC Sodium Chloride (NS 1000 ml Inj) 1,000 ml @ 999 mls/hr BOLUS ONCE IV Last administered on 07/31/16 21:22; Start 07/31/16 at 21:00; Stop 07/31/16 at 22:00 ; Status DC Sodium Chloride (NS Flush) 2 ml BID IV FLUSH ; Start 07/31/16 at 21:00; Stop at 21:08; Status DC Vancomycin HCl 1000 mg/Sodium Chloride 250 ml @ 250 mls/hr ONCE ONCE IV Last administered on 07/31/16 20:55; Start 07/31/16 at 19:15; Stop 07/31/16 at 20:14 ; Status DC (Gerda Mendoza MD R1) Urinary Catheter: No (Gerda Mendoza MD R1) Vascular Central Line Catheter: No (Gerda Mendoza MD R1) A/P Assessment and Plan 21-year-old male presenting with abdominal pain, nausea/vomiting, bright red blood per rectum with possible inflammatory bowel syndrome Discharge Planning Pending clinical improvement and GI work-up --may require repeat scope depending on what records from [place] show. Stool studies pending also to work-up infectious and noninfectious sources of symptoms (Gerda Mendoza MD R1) Attending Attestation Pt. examined and case discussed with resident physicians I have read the above note and agree with the assessment/plan as discussed with me I was involved in all medical decision making for this patient Marcos Espinosa MD (Marcos Espinosa MD) Problem List: (1) Abdominal pain Status: Acute Plan: GI consulted and appreciate recommendations - Continue ciprofloxacin and Flagyl - Blood cultures NG x 1 day - Protonix 40 mg IV twice a day - KUB 08/02 showing no acute disease - Celiac panel ordered and pending - HIV negative - Viral hepatitis panel pending - Celiac studies, autoimmune labs pending - Stool studies ordered and pending Patient may require repeat colonoscopy - Records requested for recent colonoscopy including procedure report and pathology - request sent 08/01 Continue IV fluids with normal saline at 150 mL/hour - Follow daily BMPs Diet with clear liquids and advance as tolerated Pain control as below: -Oxycodone-acetaminophen 5 mg every 4 hours; Dilaudid 1 mg IV every 3 hours pain 6-10 (2) Nausea & vomiting Status: Acute Plan: Nausea 08/02, no vomiting since 07/31. Treatment for abdominal pain as above including Zofran 4 mg every 6 hours as needed (3) Leukocytosis Status: Acute Plan: Stable at approx 20. ESR wnl. CRP is elevated at 3.6. Workup for abdominal pain as above Blood cultures 2 as above Continue empiric antibiotics as above (4) LFT elevation Status: Acute Plan: Downtrending. Viral hepatitis panel pending GI following (5) Fluids/Electrolytes/Nutrition/Prophylaxis Status: Acute Plan: Fluids: NS @ 150ml/hr Electrolytes: monitor and replete as needed Nutrition: Clear liquid diet, advance as tolerated DVT Prophylaxis: Lovenox 40mg subQ q24hr GI Prophylaxis: Protonix 40 mg twice a day IV (Gerda Mendoza MD R1) Problem Qualifiers (1) Abdominal pain: Qualified Code: R10.11 - Right upper quadrant abdominal pain (2) Nausea & vomiting: Qualified Code: R11.2 - Intractable vomiting with nausea, unspecified vomiting type (3) Leukocytosis: Qualified Code: D72.825 - Bandemia Gerda Mendoza MD R1 Aug 02, 2016 10:25 Marcos Espinosa MD Aug 02, 2016 18:57
[2016-08-02 12:00] VITALS: BP 120/73; PULSE 88; RESP 16; TEMP 97; O2SAT 98
--- NOTE | 2016-08-02 13:49 | HHI.GIFU ---
Subjective Remarks Resting in bed. Pain has improved. 2 loose stools today with small amount of red blood mixed within stools. Started on clear liquids. Tolerating this. Records have been requested from colonoscopy in [place]. (Magdalena Suggs) Objective Vitals I&O Vital Signs Date Time Temp Pulse Resp B/P Pulse Ox O2 Delivery O2 Flow Rate FiO2 08/02/16 12:00 97.0 88 16 120/73 98 08/02/16 08:00 98.8 99 16 126/80 98 08/02/16 04:00 97.6 120 17 136/77 99 08/02/16 00:00 97.3 114 17 128/76 99 08/01/16 20:00 97.1 131 18 115/79 98 08/01/16 16:00 97.0 102 18 135/77 98 I/O 08/01/16 08/01/16 08/01/16 08/02/16 08/02/16 08/02/16 07:00 15:00 23:00 07:00 15:00 23:00 Intake Total 1156 ml 1050 ml 240 ml 60 ml 1964 ml Balance 1156 ml 1050 ml 240 ml 60 ml 1964 ml Intake Oral 60 ml 240 ml 60 ml IV Total 1096 ml 1050 ml 1964 ml # Voids 3 2 # Bowel Movements 0 4 2 Laboratory Laboratory Tests Test 08/01/16 08/02/16 16:50 05:55 Stool C. difficile Toxin (PCR) NEGATIVE Stl C. difficile Toxin PRESUMPTIVE Epiderm 027 NEGATIVE White Blood Count 20.6 Red Blood Count 4.54 Hemoglobin 13.5 Hematocrit 39.4 Mean Corpuscular Volume 86.7 Mean Corpuscular Hemoglobin 29.7 Mean Corpuscular Hemoglobin 34.2 Concent Red Cell Distribution Width 13.1 Platelet Count 347 Mean Platelet Volume 6.6 Neutrophils (%) (Auto) 83.3 Lymphocytes (%) (Auto) 6.3 Monocytes (%) (Auto) 8.1 Eosinophils (%) (Auto) 2.1 Basophils (%) (Auto) 0.2 Neutrophils # (Auto) 17.2 Lymphocytes # (Auto) 1.3 Monocytes # (Auto) 1.7 Eosinophils # (Auto) 0.4 Basophils # (Auto) 0.0 CBC Comment DIFF FINAL Differential Comment Sodium Level 139 Potassium Level 3.8 Chloride Level 103 Carbon Dioxide Level 27.6 Anion Gap 8 Blood Urea Nitrogen 12 Creatinine 0.90 Estimat Glomerular Filtration 107 Rate Random Glucose 120 Calcium Level 7.7 Total Bilirubin 0.2 Aspartate Amino Transf 38 (AST/SGOT) Alanine Aminotransferase 135 (ALT/SGPT) Alkaline Phosphatase 48 Total Protein 4.5 Albumin 1.8 Date/Time Procedure Status Source Growth 08/01/16 16:50 Cryptosporidium Exam - Final Complete Stool Stool NEGATIVE - NO CRYPTOSPORIDIUM ANTIGEN... 08/01/16 16:50 Stool Pus (PATRICIA) - Final Complete Stool Stool NO WBC'S SEEN 08/01/16 16:50 Giardia Antigen (PATRICIA) - Final Complete Stool Stool NEGATIVE - NO GIARDIA ANTIGEN DETECTE... 08/01/16 16:50 - Final Complete Stool Stool NO ENTERIC PATHOGENS DETECTED BY PCR... 07/31/16 19:30 Aerobic Blood Culture - Preliminary Resulted Blood Peripheral NO GROWTH IN 2 DAYS 07/31/16 19:30 Anaerobic Blood Culture - Preliminary Resulted Blood Peripheral NO GROWTH IN 2 DAYS Imaging Last Impressions Abdomen X-Ray 08/02/16 0600 Signed Impressions: Service Date/Time: Tuesday, August 02, 2016 09:07 - CONCLUSION: No acute disease. Berry Christine MD FACR Chest X-Ray 07/31/16 1648 Signed Impressions: Service Date/Time: Sunday, July 31, 2016 17:16 - CONCLUSION: Normal examination for a patient of this age. Dustin Fu MD Abdomen/Pelvis CT 07/31/168 Signed Impressions: Service Date/Time: Sunday, July 31, 2016 18:43 - CONCLUSION: Normal examination. Dustin Fu MD Physical Exam HEENT: Normocephalic; atraumatic; no jaundice. CHEST: CTA CARDIAC: RRR ABDOMEN: Soft, nondistended, NONtender; no hepatosplenomegaly; bowel sounds are present in all four quadrants. EXTREMITIES: No clubbing, cyanosis, or edema. SKIN: Normal; no rash; no jaundice. COFFEE FARMER: No focal deficits; alert and oriented times three. (Magdalena Suggs) Assessment and Plan Plan ASSESSMENT: - Bloody diarrhea, abdominal pain, intractably nausea/vomiting x 2-3 months. Unclear if this is infectious vs. inflammatory vs. other process. Symptoms began in May 2016 with bloody diarrhea upwards of 30 times per day and abdominal pain. He was reportedly seen at a hospital in [place] and had a colonoscopy performed which he reports was dx with chew- colitis (ulcerative colitis) but reports that in was an inadequate prep. He was started on a short taper of Prednisone (~5 days) and mesalamine ( Apriso). He took the Apriso as prescribed for about a month but then was not taking as prescribed after that as he developed nausea/vomiting about 1 month ago. He states that he continued to have bloody diarrhea but the frequency decreased to around 10 times per day but the nausea/vomiting seemed to worsen. He was seen by a different GI physician at [facility] [place] and at that time his WBCs were 19,000. He had an EGD on 07/30 which noted ulcers in second part of duodenum, ulcers in antrum, erythema and congestion in whole stomach, no esophageal changes. He was prescribed esomeprazole and Carafate. He came to this facility (parents live here) for further evaluation. CT Abd/pelvis (07/31) --> Normal examination. Pt with noted leukocytosis 22,000 today with left shift. CRP elevated at 3.60. +Family hx of UC. Sed rate 5, Celiac panel pending. Stool cultures negative. Pt is currently on Cipro. Flagyl, PPI, Zofran prn, IVF and he seems to be responding to this. He had 2 small bowel movements, with small amount of red bloody. Pain improved. Request for records (colonoscopy/pathology) have been requested. PPI IV BID. Zofran PRN. - Elevated LFTs. Etiology unclear. Viral hepatitis panel is pending. Lfts improving. T. Bili 0.2, AST 38, ALT 135, Alk Phosph 48.. PLAN: - Clear liquids - Cont. Cipro/Flagyl - Cont. PPI - Cont. IVF - Cont. Zofran prn. - Monitor LFTs - Await hepatitis panel - Await records from recent colonoscopy including procedure report and pathology. - ? Repeat colonoscopy - Supportive care - Further recs as the case develops - The pt was seen and examined by myself and Dr. Posadas, this note was written on his behalf. (Magdalena Suggs) Physician Comments Patient seen and examined Agree with above Continue with current supportive care Monitor labs We will plan for a flexible sigmoidoscopy tomorrow to evaluate response of his ulcerative colitis and potentially rule out other causes of bloody diarrhea ( Dale Posadas MD) Magdalena Suggs Aug 02, 2016 13:49 Dale Posadas MD Aug 02, 2016 22:34
[2016-08-02 15:55] LABS: ANA SCREEN NEG (NEG)
[2016-08-02 16:00] VITALS: BP 117/73; PULSE 75; RESP 18; TEMP 97; O2SAT 99
[2016-08-02 20:00] VITALS: BP 140/79; PULSE 106; PULSE 107; RESP 18; TEMP 97.7; O2SAT 97
[2016-08-02] MEDS: ENOXAPARIN SODIUM 40 MG/0.4 ML SYRINGE SQ SCH (20:19)
[2016-08-03] VITALS (9 sets, daily range): BP systolic 97–131; BP diastolic 56–72; PULSE 87–180; RESP 16–20; TEMP 97.2–99.4; O2SAT 96–98
[2016-08-03] MEDS: HYDROmorphone HCL PF 1 MG/ML VIAL IV PRN ×2 (01:18→06:24)
[2016-08-03] MEDS: ONDANSETRON HCL 4 MG/2 ML VIAL IVP PRN (01:22)
[2016-08-03] MEDS: SODIUM CHLOR 0.9% 1000 ML INJ 1,000 ML IV SCH (02:51)
[2016-08-03] MEDS: metroNIDAZOLE 500 MG INJ 100 ML IV SCH (02:51)
[2016-08-03] MEDS: CIPROFLOXACIN 400 MG PREMIX 200 ML IV SCH (03:58)
[2016-08-03 06:56] LABS: AUTOMATED NEUTROPHIL # 13.8 TH/MM3 (1.8-7.7); BASOPHIL % 0.2 % (0.0-2.0); EOSINOPHIL # 1.1 TH/MM3 (0-0.4); EOSINOPHIL % 5.9 % (0.0-4.0); LYMPH % 8.4 % (9.0-44.0); LYMPHOCYTE # 1.5 TH/MM3 (1.0-4.8); MEAN CORPUSCULAR HEMOGLOBIN 29.6 PG (27.0-34.0); MONO % 8.8 % (0.0-8.0); NEUT % 76.7 % (16.0-70.0); PLATELET COUNT 327 TH/MM3 (150-450); RED BLOOD COUNT 4.14 MIL/MM3 (4.50-5.90); RED CELL DISTRIBUTION WIDTH 13.1 % (11.6-17.2); WHITE BLOOD COUNT 17.9 TH/MM3 (4.0-11.0)
[2016-08-03 06:59] LABS: HEMO FLAGS AUTO DIFF
[2016-08-03 07:20] LABS: BICARBONATE 24.1 MEQ/L (21.0-32.0); POTASSIUM 3.1 MEQ/L (3.5-5.1)
[2016-08-03 07:43] LABS: TOTAL BILIRUBIN ADULT 0.2 MG/DL (0.2-1.0)
[2016-08-03 07:47] LABS: BANDS 18 % (0-6); BASOPHILS 1 % (0-2); EOSINOPHILS 7 % (0-4); METAMYELOCYTES 2 % (0-1); POLYS (SEG NEUTROPHILS) 58 % (16-70); WBC DIFF SAMPLE 100
[2016-08-03 07:51] LABS: DOHLE BODIES PRESENT (NONE SEEN); PLATELET ESTIMATE SMEAR NORMAL (NORMAL); PLATELET MORPHOLOGY NORMAL (NORMAL); SCAN/DIFF FINAL DIFF MANUAL
[2016-08-03] MEDS: PANTOPRAZOLE SODIUM 40 MG VIAL IV SCH ×2 (08:00→21:29)
[2016-08-03] MEDS: SODIUM CHLORIDE 0.9% FLUSH 10 ML FLUSH IV FLUSH SCH ×2 (08:02→21:00)
[2016-08-03] MEDS ORDERED: POTASSIUM CHLOR 20 MEQ PREMIX 100 ML IV ONE (08:30)
[2016-08-03] MEDS ORDERED: PROPOFOL 200 MG/20 ML AMP IV ONE (12:48)
[2016-08-03] MEDS ORDERED: POTASSIUM CHLORIDE 20 MEQ CONTROLLED RELEASE TAB PO ONE (13:00)
--- NOTE | 2016-08-03 13:06 | GIPROC ---
[facility] [address] [facility]. [facility], [address] FLEXIBLE SIGMOIDOSCOPY PROCEDURE REPORT EXAM DATE: 08/03/2016 PATIENT NAME: Curt Wheeler MR #: [id number] BIRTHDATE: 1995 ORDER #: [id number] ATTENDING: Dale Posadas MD CERTIFIED GREEN BUILDING ENGINEER: Caitlin Montero and Tank Molina STATUS: inpatient INDICATIONS: The patient is a 21 yr old male here for a flexible sigmoidoscopy due to unexplained diarrhea and follow-up of ulcerative colitis PROCEDURE PERFORMED: Flexible Sigmoidoscopy with biopsy MEDICATIONS: None and Per Anesthesia. ESTIMATED BLOOD LOSS: None CONSENT: The patient understands the risks and benefits of the procedure and understands that these risks include, but are not limited to: sedation, allergic reaction, infection, perforation and/or bleeding. Alternative means of evaluation and treatment include, among others: physical exam, x-rays, and/or surgical intervention. The patient elects to proceed with this endoscopic procedure. medical equipment was checked for proper function. Hand hygiene and appropriate measures for infection prevention was taken. After the risks, benefits and alternatives of the procedure were thoroughly explained, Informed consent was verified, confirmed and timeout was successfully executed by the treatment team. A digital rectal exam revealed no abnormalities of the rectum The Pentax [id number] endoscope was introduced through the anus and advanced to the descending colon. The prep was fair. The instrument was then slowly withdrawn as the colon was fully examined. COLON FINDINGS: A diffuse patch of abnormal mucosa was found in the descending colon, sigmoid colon, and rectum. The mucosa was edematous, erythematous, friable and ulcerated. Multiple biopsies were performed. Retroflexion was not performed The scope was then completely withdrawn from the patient and the procedure terminated. ADVERSE EVENTS: There were no complications. IMPRESSIONS: 1. Diffuse abnormal mucosa was found in the descending colon, sigmoid colon, and rectum; The mucosa was edematous, erythematous, friable and ulcerated; multiple biopsies were performed 2. Retroflexion was not performed 3. Revealed no abnormalities of the rectum RECOMMENDATIONS: 1. Await biopsy results 2. Start prednisone 3. Follow-up: GI clinic 3 week(s) RECALL: Return 1 year Colonoscopy Dale Posadas MD eSigned: Dale Posadas MD 08/03/2016 1:06 PM cc:
--- NOTE | 2016-08-03 13:36 | HHI.FPPN ---
Subjective Remarks Patient comfortable on exam. Abd pain is controlled. Had large BMs this morning after prep for sigmoidoscopy. No fevers or chills. Last night he reports an episode when his heart started beating fast and he felt his "heart in his neck. " This last for several minutes. He has not since had any episodes. (Clifford Baker MD R2) Objective Vitals Vital Signs Date Time Temp Pulse Resp B/P Pulse Ox O2 Delivery O2 Flow Rate FiO2 08/03/16 13:07 89 16 97/54 100 08/03/16 13:01 94 16 93/50 100 08/03/16 12:56 97.5 98 16 89/46 100 08/03/16 10:37 97.7 98 20 118/72 97 08/03/16 08:00 97.7 98 20 118/72 97 08/03/16 04:00 97.2 100 18 131/71 96 08/03/16 00:00 98.1 99 18 118/72 98 08/02/16 20:00 106 08/02/16 20:00 97.7 107 18 140/79 97 08/02/16 16:00 97.0 75 18 117/73 99 I/O 08/02/16 08/02/16 08/02/16 08/03/16 08/03/16 08/03/16 07:00 15:00 23:00 07:00 15:00 23:00 Intake Total 60 ml 1964 ml 2028 ml 1995 ml Output Total 300 ml Balance 60 ml 1964 ml 2028 ml -300 ml 1995 ml Intake Oral 60 ml 720 ml IV Total 1964 ml 1308 ml 1395 ml Other 600 ml Emesis 300 ml # Voids 2 3 1 # Bowel Movements 2 3 (Clifford Baker MD R2) Result Diagram: 08/03/16 0553 08/03/16 0553 Imaging Last Impressions Abdomen X-Ray 08/02/16 0600 Signed Impressions: Service Date/Time: Tuesday, August 02, 2016 09:07 - CONCLUSION: No acute disease. Berry Christine MD FACR Chest X-Ray 07/31/[id number] Signed Impressions: Service Date/Time: Sunday, July 31, 2016 17:16 - CONCLUSION: Normal examination for a patient of this age. Dustin Fu MD Abdomen/Pelvis CT 07/31/[id number] Signed Impressions: Service Date/Time: Sunday, July 31, 2016 18:43 - CONCLUSION: Normal examination. Dustin Fu MD Objective Remarks Gen.: Well-nourished appearing young male walking around the room and subsequently sitting up in bed, no obvious distress, appears comfortable HEENT: Tongue with superficial desquamation, and shallow ulcers. No pharyngeal erythema. Uvula midline. No lymphadenopathy. CV: Regular rate and rhythm, sinus tachycardia, brisk pulses to each limb. Pulmonary:: Clear to auscultation bilaterally. No wheezes or rhonchi. No increased work of breathing. GI: Tender diffusely in upper abdomen, no rebound, no guarding, no voluntary guarding, bowel sounds hyperactive today. Neurologic: Alert and oriented 3, moving all extremities, gross sensation intact. (Clifford Baker MD R2) A/P Assessment and Plan 21-year-old male presenting with abdominal pain, nausea/vomiting, bright red blood per rectum with possible inflammatory bowel syndrome Discharge Planning Pending clinical improvement and GI work-up --may require repeat scope depending on what records from [place] show. Stool studies pending also to work-up infectious and noninfectious sources of symptoms (Clifford Baker MD R2) Attending Attestation Pt. examined and case discussed with resident physician I have read the above note and agree with the assessment/plan as discussed with me I was involved in all medical decision making for this patient Marocs Espinosa MD (Marcos Espinosa MD) Problem List: (1) Abdominal pain Status: Acute Plan: GI consulted and appreciate recommendations - Add prednisone 40 mg po qd - Continue ciprofloxacin and Flagyl - Blood cultures NG x 2 day - Protonix 40 mg IV twice a day - KUB 08/02 showing no acute disease - Celiac panel ordered and pending - HIV negative - Viral hepatitis panel negative - BIANCA negative - Stool studies ordered negative for enteric pathogens or WBCs Sigmoidoscopy showed: "Diffuse abnormal mucosa was found in the descending colon , sigmoid colon, and rectum; The mucosa was edematous, erythematous, friable and ulcerated; multiple biopsies were performed." Hold IV fluids Diet with clear liquids and advance as tolerated Pain control as below: -Oxycodone-acetaminophen 5 mg every 4 hours; Dilaudid 1 mg IV every 3 hours pain 6-10 (2) Nausea & vomiting Status: Acute Plan: Nausea 08/02, no vomiting since 07/31. Treatment for abdominal pain as above including Zofran 4 mg every 6 hours as needed (3) Leukocytosis Status: Acute Plan: Reduced from 20k --> 17.9k. ESR wnl. CRP is elevated at 3.6. Workup for abdominal pain as above Blood cultures 2 as above negative. Continue empiric antibiotics as above. (4) LFT elevation Status: Acute Plan: Downtrending. Viral hepatitis panel pending GI following (5) Fluids/Electrolytes/Nutrition/Prophylaxis Status: Acute Plan: Fluids: NS @ 150ml/hr HOLD. Electrolytes: K+ 3.1 this morning, give 20 meq KCL IV, and 40 Meq PO. Recheck BMP in AM. Magnesium WNL. CA+ 7.2, protein corrected 9.0. Nutrition: Clear liquid diet, advance as tolerated, Albumin < 2.0 - consult milling supervisor for dietary advice. DVT Prophylaxis: Lovenox 40mg subQ q24hr GI Prophylaxis: Protonix 40 mg twice a day IV dw Dr. Espinosa. (Clifford Baker MD R2) Problem Qualifiers (1) Abdominal pain: Qualified Code: R10.11 - Right upper quadrant abdominal pain (2) Nausea & vomiting: Qualified Code: R11.2 - Intractable vomiting with nausea, unspecified vomiting type (3) Leukocytosis: Qualified Code: D72.825 - Bandemia Clifford Baker MD R2 Aug 03, 2016 13:35 Marcos Espinosa MD Aug 03, 2016 16:23
[2016-08-03] MEDS: predniSONE 20 MG TAB PO SCH (14:01)
[2016-08-03] MEDS: ENOXAPARIN SODIUM 40 MG/0.4 ML SYRINGE SQ SCH (21:29)
[2016-08-03 23:55] LABS: IGA SERUM 75 mg/dL (81-463)
[2016-08-04] VITALS (8 sets, daily range): BP systolic 97–119; BP diastolic 56–69; PULSE 80–96; RESP 16; TEMP 97.6–99.3; O2SAT 96–98
[2016-08-04 06:29] LABS: HEMATOCRIT 30.2 % (39.0-51.0); MEAN CORPUSCULAR HEMOGLOBIN 29.9 PG (27.0-34.0); MEAN CORPUSCULAR HGB CONC 34.8 % (32.0-36.0); PLATELET COUNT 335 TH/MM3 (150-450); RED BLOOD COUNT 3.51 MIL/MM3 (4.50-5.90); RED CELL DISTRIBUTION WIDTH 12.7 % (11.6-17.2); REVIEW FLAG FINAL; WHITE BLOOD COUNT 12.3 TH/MM3 (4.0-11.0)
[2016-08-04 06:50] LABS: ALT (GPT) 81 U/L (12-78); ANION GAP 7 MEQ/L (5-15); AST (GOT) 38 U/L (15-37); BICARBONATE 25.4 MEQ/L (21.0-32.0); BLOOD UREA NITROGEN 7 MG/DL (7-18); CHLORIDE 111 MEQ/L (98-107); GLOMERULAR FILTRATION RATE 136 ML/MIN (>89); POTASSIUM 3.3 MEQ/L (3.5-5.1); SODIUM (NA) 143 MEQ/L (136-145)
[2016-08-04 06:52] LABS: ALKALINE PHOSPHATASE 39 U/L (45-117); TOTAL BILIRUBIN ADULT 0.1 MG/DL (0.2-1.0)
--- NOTE | 2016-08-04 07:46 | EKG ---
Date Performed: 08/02/2016 Time Performed: 21:02:38 PTAGE: 21 years EKG: SINUS TACHYCARDIA POSSIBLE LEFT ATRIAL ENLARGEMENT NONSPECIFIC ST & T-WAVE ABNORMALITY VOLT AGE CRITERIA FOR LEFT VENTRICULAR HYPERTROPHY PROLONGATION OF THE QT INTERVAL FOR THE HEART RATE ABNO RMAL RHYTHM ECG NO PREVIOUS TRACING DOCTOR: Chiquita Ferris Interpretating Date/Time 08/04/2016 07:44:38
--- NOTE | 2016-08-04 08:46 | HHI.FPPN ---
Subjective Remarks Feeling "good" - had BM this morning still lqiuid but "grainy". No blood in the water but when he wiped. ABD pain is well controlled. Tolerating whole food without difficulty. No N V. No F C. No return of palpitations, chest pressure, or pulse in his throat that he experienced on 08/02. (Clifford Baker MD R2) Objective Vitals Vital Signs Date Time Temp Pulse Resp B/P Pulse Ox O2 Delivery O2 Flow Rate FiO2 08/04/16 04:00 97.6 86 16 97/56 96 08/04/16 00:00 99.3 89 16 104/57 97 08/03/16 20:55 102 08/03/16 20:00 99.4 87 16 106/58 96 08/03/16 16:00 97.2 103 20 97/56 98 08/03/16 13:30 97.5 180 20 119/69 98 08/03/16 13:07 89 16 97/54 100 08/03/16 13:01 94 16 93/50 100 08/03/16 12:56 97.5 98 16 89/46 100 08/03/16 10:37 97.7 98 20 118/72 97 08/03/16 09:05 98 I/O 08/03/16 08/03/16 08/03/16 08/04/16 08/04/16 08/04/16 07:00 15:00 23:00 07:00 15:00 23:00 Intake Total 2417 ml 720 ml 480 ml Output Total 300 ml Balance -300 ml 2417 ml 720 ml 480 ml Intake Oral 0 ml 720 ml 480 ml IV Total 1817 ml Other 600 ml Emesis 300 ml # Voids 1 3 2 2 # Bowel Movements 3 2 1 (Clifford Baker MD R2) Result Diagram: 08/04/16 0554 08/04/16 0554 Objective Remarks Gen.: Well-nourished appearing young male walking around the room and subsequently sitting up in bed, no obvious distress, appears comfortable HEENT: Tongue with superficial desquamation, and shallow ulcers. No pharyngeal erythema. Uvula midline. No lymphadenopathy. CV: Regular rate and rhythm, sinus tachycardia, brisk pulses to each limb. Pulmonary:: Clear to auscultation bilaterally. No wheezes or rhonchi. No increased work of breathing. GI: Tender diffusely in upper abdomen, no rebound, no guarding, no voluntary guarding, bowel sounds hyperactive today. Neurologic: Alert and oriented 3, moving all extremities, gross sensation intact. (Clifford Baker MD R2) A/P Assessment and Plan 21-year-old male presenting with abdominal pain, nausea/vomiting, bright red blood per rectum with possible inflammatory bowel syndrome Discharge Planning Pending clinical improvement and GI work-up --may require repeat scope depending on what records from [place] show. Stool studies pending also to work-up infectious and noninfectious sources of symptoms (Clifford Baker MD R2) Attending Attestation Patient examined and case discussed with resident physicians I have read the above note and agree with the assessment/plan as discussed with me I was involved in all medical decision making this patient Marcos Espinosa MD (Marcos Espinosa MD) Problem List: (1) Abdominal pain Status: Acute Plan: GI consulted and appreciate recommendations - Add prednisone 40 mg po qd - Discontinue ciprofloxacin and Flagyl - Blood cultures NG x 2 day - Protonix 40 mg IV twice a day - KUB 08/02 showing no acute disease - Celiac panel ordered and pending - HIV negative - Viral hepatitis panel negative - BIANCA negative - Stool studies ordered negative for enteric pathogens or WBCs Sigmoidoscopy showed: "Diffuse abnormal mucosa was found in the descending colon , sigmoid colon, and rectum; The mucosa was edematous, erythematous, friable and ulcerated; multiple biopsies were performed." Awaiting biopsy results. Hold IV fluids Reg Diet as tolerated. Pain control as below: -Oxycodone-acetaminophen 5 mg every 4 hours; Dilaudid 1 mg IV every 3 hours pain 6-10 (2) Nausea & vomiting Status: Acute Plan: Nausea 08/02, no vomiting since 07/31. Treatment for abdominal pain as above including Zofran 4 mg every 6 hours as needed. (3) Leukocytosis Status: Acute Plan: Reduced from 20k --> 12k. ESR wnl. CRP is elevated at 3.6. Workup for abdominal pain as above Blood cultures 2 as above negative. Continue empiric antibiotics as above. (4) LFT elevation Status: Acute Plan: Downtrending. Viral hepatitis panel pending. GI following. (5) Fluids/Electrolytes/Nutrition/Prophylaxis Status: Acute Plan: Fluids: NS @ 150ml/hr HOLD. Electrolytes: K+ 3.3 this morning, give 40 Meq PO. Recheck BMP in AM. Magnesium WNL. CA+ 7.5. Nutrition: Clear liquid diet, advance as tolerated, Albumin < 2.0 - consult environmental compliance inspector for dietary advice. DVT Prophylaxis: Lovenox 40mg subQ q24hr GI Prophylaxis: Protonix 40 mg twice a day IV dw Dr. Espinosa. (Clifford Baker MD R2) Problem Qualifiers (1) Abdominal pain: Qualified Code: R10.11 - Right upper quadrant abdominal pain (2) Nausea & vomiting: Qualified Code: R11.2 - Intractable vomiting with nausea, unspecified vomiting type (3) Leukocytosis: Qualified Code: D72.825 - Bandemia Clifford Baker MD R2 Aug 04, 2016 08:46 Marcos Espinosa MD Aug 04, 2016 14:52
[2016-08-04 09:17] LABS: CALCIUM-PROTEIN CORRECTED 9.2 MG/DL (8.5-10.1)
--- NOTE | 2016-08-04 09:42 | HHI.GIFU ---
Subjective Remarks Resting in bed. States he is starting to feel some "movement" in his abdomen, but no cramping or significant pain. Did have a very small amount of rectal bleeding on the tissue this morning. (Magdalena Suggs) Objective Vitals I&O Vital Signs Date Time Temp Pulse Resp B/P Pulse Ox O2 Delivery O2 Flow Rate FiO2 08/04/16 09:20 98.0 88 16 105/58 97 08/04/16 04:00 97.6 86 16 97/56 96 08/04/16 00:00 99.3 89 16 104/57 97 08/03/16 20:55 102 08/03/16 20:00 99.4 87 16 106/58 96 08/03/16 16:00 97.2 103 20 97/56 98 08/03/16 13:30 97.5 180 20 119/69 98 08/03/16 13:07 89 16 97/54 100 08/03/16 13:01 94 16 93/50 100 08/03/16 12:56 97.5 98 16 89/46 100 08/03/16 10:37 97.7 98 20 118/72 97 I/O 08/03/16 08/03/16 08/03/16 08/04/16 08/04/16 08/04/16 07:00 15:00 23:00 07:00 15:00 23:00 Intake Total 2417 ml 720 ml 480 ml Output Total 300 ml Balance -300 ml 2417 ml 720 ml 480 ml Intake Oral 0 ml 720 ml 480 ml IV Total 1817 ml Other 600 ml Emesis 300 ml # Voids 1 3 2 2 # Bowel Movements 3 2 1 Laboratory Laboratory Tests Test 08/04/16 05:54 White Blood Count 12.3 Red Blood Count 3.51 Hemoglobin 10.5 Hematocrit 30.2 Mean Corpuscular Volume 86.0 Mean Corpuscular Hemoglobin 29.9 Mean Corpuscular Hemoglobin 34.8 Concent Red Cell Distribution Width 12.7 Platelet Count 335 Mean Platelet Volume 6.7 Sodium Level 143 Potassium Level 3.3 Chloride Level 111 Carbon Dioxide Level 25.4 Anion Gap 7 Blood Urea Nitrogen 7 Creatinine 0.73 Estimat Glomerular Filtration 136 Rate Random Glucose 112 Calcium Level 7.5 Protein Corrected Calcium 9.2 Total Bilirubin 0.1 Aspartate Amino Transf 38 (AST/SGOT) Alanine Aminotransferase 81 (ALT/SGPT) Alkaline Phosphatase 39 Total Protein 4.2 Albumin 1.7 Date/Time Procedure Status Source Growth 08/01/16 16:50 Cryptosporidium Exam - Final Complete Stool Stool NEGATIVE - NO CRYPTOSPORIDIUM ANTIGEN... 08/01/16 16:50 Stool Pus (PATRICIA) - Final Complete Stool Stool NO WBC'S SEEN 08/01/16 16:50 Giardia Antigen (PATRICIA) - Final Complete Stool Stool NEGATIVE - NO GIARDIA ANTIGEN DETECTE... 08/01/16 16:50 - Final Complete Stool Stool NO ENTERIC PATHOGENS DETECTED BY PCR... 07/31/16 19:30 Aerobic Blood Culture - Preliminary Resulted Blood Peripheral NO GROWTH IN 3 DAYS 07/31/16 19:30 Anaerobic Blood Culture - Preliminary Resulted Blood Peripheral NO GROWTH IN 3 DAYS Imaging Last Impressions Abdomen X-Ray 08/02/16 0600 Signed Impressions: Service Date/Time: Tuesday, August 02, 2016 09:07 - CONCLUSION: No acute disease. Berry Christine MD FACR Chest X-Ray 07/31/161647 Signed Impressions: Service Date/Time: Sunday, July 31, 2016 17:16 - CONCLUSION: Normal examination for a patient of this age. Dustin Fu MD Abdomen/Pelvis CT 07/31/161647 Signed Impressions: Service Date/Time: Sunday, July 31, 2016 18:43 - CONCLUSION: Normal examination. Dustin Fu MD Physical Exam HEENT: Normocephalic; atraumatic; no jaundice. CHEST: CTA CARDIAC: RRR ABDOMEN: Soft, nondistended, Nontender; no hepatosplenomegaly; bowel sounds are present in all four quadrants. EXTREMITIES: No clubbing, cyanosis, or edema. SKIN: Normal; no rash; no jaundice. RN HEMATOLOGY: No focal deficits; alert and oriented times three. (Magdalena Suggs [facility]) Assessment and Plan Plan ASSESSMENT: - Bloody diarrhea, abdominal pain, intractably nausea/vomiting x 2-3 months. Unclear if this is infectious vs. inflammatory vs. other process. Symptoms began in May 2016 with bloody diarrhea upwards of 30 times per day and abdominal pain. He was reportedly seen at a hospital in [place] and had a colonoscopy performed which he reports was dx with chew- colitis (ulcerative colitis) but reports that in was an inadequate prep. He was started on a short taper of Prednisone (~5 days) and mesalamine ( Apriso). He took the Apriso as prescribed for about a month but then was not taking as prescribed after that as he developed nausea/vomiting about 1 month ago. He states that he continued to have bloody diarrhea but the frequency decreased to around 10 times per day but the nausea/vomiting seemed to worsen. He was seen by a different GI physician at [facility] [place] last week and at that time his WBCs were 19,000. He had an EGD on 07/30 which noted ulcers in second part of duodenum, ulcers in antrum, erythema and congestion in whole stomach, no esophageal changes. He was prescribed esomeprazole and Carafate. He came to this facility (parents live here) for further evaluation. CT Abd/pelvis (07/31) --> Normal examination. CRP elevated at 3.60.Sed rate 5, Celiac panel pending. Stool cultures negative. +Family hx of UC. Sigmoidoscopy (08/03/16)---> 1. Diffuse abnormal mucosa was found in the descending colon, sigmoid colon, and rectum; The mucosa was edematous, erythematous, friable and ulcerated; multiple biopsies were performed 2. Retroflexion was not performed 3. Revealed no abnormalities of the rectum. Pathology pending. Prednisone. PPI IV BID. Zofran PRN. - Elevated LFTs. Etiology unclear. Viral hepatitis panel negative. Stable. PLAN: - SUNITA - Cont. Prednisone - Cont. PPI - Cont. IVF - Cont. Zofran prn. - Monitor LFTs - Supportive care - Rpt. Colonoscopy 1 year - The pt was seen and examined by myself and Dr. Posadas, this note was written on his behalf. (Magdalena Suggs) Physician Comments Patient seen and examined Agree with above Continue with current supportive care Monitor labs Considering Biologics for treatment Patient to follow-up in clinic in 1-2 weeks Continue with current dose of prednisone until seen in clinic thereafter we will start a slow taper (Dale Posadas MD) Magdalena Suggs Aug 04, 2016 09:42 Dale Posadas MD Aug 04, 2016 20:28
[2016-08-04] MEDS: PANTOPRAZOLE SODIUM 40 MG VIAL IV SCH ×2 (10:13→21:17)
[2016-08-04] MEDS: predniSONE 20 MG TAB PO SCH (10:13)
[2016-08-04] MEDS: POTASSIUM CHLORIDE 10 MEQ CONTROLLED RELEASE TAB PO SCH (10:14)
[2016-08-04] MEDS: SODIUM CHLORIDE 0.9% FLUSH 10 ML FLUSH IV FLUSH SCH ×2 (10:16→21:17)
[2016-08-04 13:52] LABS: ENDOMYSIAL AB TITER ND (<1:5); TISSUE TRANSGLUTAMINASE AB LESS THAN 1 U/mL (())
[2016-08-04] MEDS: ENOXAPARIN SODIUM 40 MG/0.4 ML SYRINGE SQ SCH (22:00)
[2016-08-05] VITALS (7 sets, daily range): BP systolic 105–121; BP diastolic 59–75; PULSE 76–101; RESP 16; TEMP 97.3–98.1; O2SAT 97–99
[2016-08-05] MEDS: predniSONE 20 MG TAB PO SCH (08:20)
[2016-08-05] MEDS: oxyCODONE/ACETAMINOPHEN 5 MG/325 MG TAB PO PRN (08:20)
[2016-08-05] MEDS: POTASSIUM CHLORIDE 10 MEQ CONTROLLED RELEASE TAB PO SCH (08:21)
[2016-08-05] MEDS: PANTOPRAZOLE SODIUM 40 MG VIAL IV SCH (08:22)
[2016-08-05] MEDS: SODIUM CHLORIDE 0.9% FLUSH 10 ML FLUSH IV FLUSH SCH ×2 (08:22→21:40)
[2016-08-05 09:06] LABS: AUTOMATED NEUTROPHIL # 12.1 TH/MM3 (1.8-7.7); BASOPHIL % 0.1 % (0.0-2.0); EOSINOPHIL # 0.8 TH/MM3 (0-0.4); EOSINOPHIL % 4.7 % (0.0-4.0); HEMATOCRIT 33.8 % (39.0-51.0); LYMPH % 20.1 % (9.0-44.0); LYMPHOCYTE # 3.6 TH/MM3 (1.0-4.8); MEAN CELL VOLUME 87.6 FL (80.0-100.0); MEAN CORPUSCULAR HGB CONC 34.2 % (32.0-36.0); MONO % 7.8 % (0.0-8.0); NEUT % 67.3 % (16.0-70.0); PLATELET COUNT 385 TH/MM3 (150-450); RED BLOOD COUNT 3.86 MIL/MM3 (4.50-5.90); RED CELL DISTRIBUTION WIDTH 13.4 % (11.6-17.2)
[2016-08-05 09:21] LABS: HEMO FLAGS AUTO DIFF
[2016-08-05 09:28] LABS: ALKALINE PHOSPHATASE 46 U/L (45-117); ALT (GPT) 160 U/L (12-78); ANION GAP 7 MEQ/L (5-15); AST (GOT) 121 U/L (15-37); BICARBONATE 28.9 MEQ/L (21.0-32.0); BLOOD UREA NITROGEN 6 MG/DL (7-18); CHLORIDE 109 MEQ/L (98-107); GLOMERULAR FILTRATION RATE 145 ML/MIN (>89); SODIUM (NA) 145 MEQ/L (136-145); TOTAL BILIRUBIN ADULT 0.1 MG/DL (0.2-1.0)
[2016-08-05] MEDS ORDERED: POTASSIUM CHLORIDE 20 MEQ CONTROLLED RELEASE TAB PO ONE (10:30)
--- NOTE | 2016-08-05 10:46 | HHI.FPPN ---
Subjective Remarks Patient was seen and examined this morning. He "overdid it" with eating yesterday, and felt some abdominal pain and had diarrhea thereafter which has resolved. No fevers, chills, nausea, vomiting. He feels ready to go home. ( Gerda Mendoza MD R1) Objective Vitals Vital Signs Date Time Temp Pulse Resp B/P Pulse Ox O2 Delivery O2 Flow Rate FiO2 08/05/16 08:45 97.9 97 16 121/75 99 08/05/16 05:00 97.3 94 16 117/68 97 08/05/16 00:00 98.1 76 16 114/59 98 08/04/16 23:51 80 08/04/16 20:00 98.6 96 16 119/65 96 08/04/16 18:33 84 08/04/16 16:00 98.2 94 16 112/69 98 08/04/16 12:00 98.0 80 16 109/62 98 08/04/16 12:00 84 I/O 08/04/16 08/04/16 08/04/16 08/05/16 08/05/16 08/05/16 07:00 15:00 23:00 07:00 15:00 23:00 Intake Total 480 ml 920 ml 720 ml 480 ml Balance 480 ml 920 ml 720 ml 480 ml Intake Oral 480 ml 920 ml 720 ml 480 ml # Voids 2 4 4 3 # Bowel Movements 1 4 4 3 (Gerda Mendoza MD R1) Result Diagram: 08/05/16 0832 08/05/16 0832 Imaging Last Impressions Abdomen X-Ray 08/02/16 0600 Signed Impressions: Service Date/Time: Tuesday, August 02, 2016 09:07 - CONCLUSION: No acute disease. Berry Christine MD FACR Chest X-Ray 07/31/161647 Signed Impressions: Service Date/Time: Sunday, July 31, 2016 17:16 - CONCLUSION: Normal examination for a patient of this age. Dustin Fu MD Abdomen/Pelvis CT 07/31/161647 Signed Impressions: Service Date/Time: Sunday, July 31, 2016 18:43 - CONCLUSION: Normal examination. Dustin Fu MD Objective Remarks Gen.: Well-nourished appearing young male sitting up in bed, no obvious distress, appears comfortable SKIN: no rashes or bruises. HEENT: Tongue is now normal in appearance. No pharyngeal erythema. Uvula midline. No lymphadenopathy. Mucus membranes moist. CV: Regular rate and rhythm, brisk pulses to each limb. Pulmonary: Clear to auscultation bilaterally. No wheezes or rhonchi. No increased work of breathing. GI: Mild tenderness to palpation, no rebound, no guarding, no voluntary guarding , bowel sounds normal. Neurologic: Alert and oriented 3, moving all extremities, gross sensation intact. Strength grossly within normal limits. Medications and IVs Inpatient Medications Ciprofloxacin/ Dextrose 200 ml @ 200 mls/hr Q12H IV Last administered on 03:58; Start 08/01/16 at 04:00; Stop 08/03/16 at 13:03; Status DC Diphenhydramine HCl 25 mg 25 mg ONCE ONCE IV PUSH Last administered on 17:40; Start 07/31/16 at 17:00; Stop 07/31/16 at 17:01; Status DC Enoxaparin Sodium (Lovenox Inj) 40 mg Q24H SQ Last administered on 08/02/16 20 :19; Start 07/31/16 at 22:00 Hydromorphone HCl (Dilaudid Pf Inj) 1 mg Q4H PRN IV PAIN SCALE 6 TO 10 Last administered on 07/31/16 22:12; Start 07/31/16 at 20:45; Stop 08/01/16 at 02:38 ; Status DC Hydromorphone HCl 1 mg 1 mg Q3H PRN IV PAIN SCALE 6 TO 10 Last administered on 08/03/16 06:24; Start 08/01/16 at 02:38 Levofloxacin/ Dextrose (Levaquin 500 Mg Premix Inj) 100 ml @ 100 mls/hr ONCE ONCE IV Last administered on 07/31/16 19:27; Start 07/31/16 at 19:15; Stop at 20:14; Status DC Metronidazole 100 ml @ 100 mls/hr Q8H IV Last administered on 08/03/16 02:51 ; Start 08/01/16 at 03:00; Stop 08/03/16 at 13:03; Status DC Morphine Sulfate (Morphine Inj) 4 mg ONCE ONCE IV PUSH Last administered on 21:23; Start 07/31/16 at 21:00; Stop 07/31/16 at 21:08; Status DC Naloxone HCl (Narcan Inj) 0.4 mg UNSCH PRN IV SEE LABEL COMMENTS; Start at 20:45 Ondansetron HCl (Zofran Inj) 4 mg Q6H PRN IVP NAUSEA OR VOMITING Last administered on 08/03/16 01:22; Start 07/31/16 at 20:45 Oxycodone/ Acetaminophen (Percocet 5-325 Mg) 1 tab Q4H PRN PO PAIN SCALE 1 TO 5 Last administered on 08/05/16 08:20; Start 07/31/16 at 20:45 Pantoprazole Sodium 40 mg 40 mg BID IV Last administered on 08/05/16 08:22; Start 07/31/16 at 21:00 Potassium Chloride (KCl 20 Meq Premix Inj) 100 ml @ 50 mls/hr BOLUS ONCE IV Last administered on 08/03/16 09:09; Start 08/03/16 at 08:30; Stop 08/03/16 at 10:29; Status DC Potassium Chloride (KCl) 20 meq ONCE ONCE PO ; Start 08/05/16 at 10:30; Stop at 10:31; Status DC Prednisone (Deltasone) 40 mg DAILY PO Last administered on 08/05/16 08:20; Start 08/03/16 at 13:00 Prochlorperazine Edisylate (Compazine Inj) 5 mg ONCE ONCE IVS Last administered on 07/31/16 17:41; Start 07/31/16 at 17:00; Stop 07/31/16 at 17:01 ; Status DC Sodium Chloride (NS 1000 ml Inj) 1,000 ml @ 999 mls/hr BOLUS ONCE IV Last administered on 07/31/16 21:22; Start 07/31/16 at 21:00; Stop 07/31/16 at 22:00 ; Status DC Sodium Chloride (NS Flush) 2 ml BID IV FLUSH ; Start 07/31/16 at 21:00; Stop at 21:08; Status DC Vancomycin HCl 1000 mg/Sodium Chloride 250 ml @ 250 mls/hr ONCE ONCE IV Last administered on 3/25/17at 20:55; Start 07/31/16 at 19:15; Stop 07/31/16 at 20:14 ; Status DC (Gerda Mendoza MD R1) Urinary Catheter: No (Gerda Mendoza MD R1) Vascular Central Line Catheter: No (Gerda Mendoza MD R1) A/P Assessment and Plan 21-year-old male presenting with abdominal pain, nausea/vomiting, bright red blood per rectum with possible inflammatory bowel syndrome. Discharge Planning Possibly today or tomorrow, pending GI approval and follow-up plan (Gerda Mendoza MD R1) Attending Attestation Pt. examined and case discussed with resident physician I have read the above note and agree with the assessment/plan as discussed with me I was involved in all medical decision making for this patient Marcos Espinosa MD (Marcos Espinosa MD) Problem List: (1) Abdominal pain Status: Acute Plan: Improving symptoms, overdid it on diet 08/04, to monitor another day Continue prednisone 40mg PO q day Protonix 40 mg IV BID switched to 40mg PO BID Reg Diet as tolerated. Pain control as below: -Oxycodone-acetaminophen 5 mg every 4 hours; Dilaudid 1 mg IV every 3 hours pain 6-10 Hospital Course: - GI consulted and appreciate recommendations - Add prednisone 40 mg po qd - Discontinue ciprofloxacin and Flagyl - Blood cultures NG x 2 day - Protonix 40 mg IV twice a day initially - KUB 08/02 showing no acute disease - Celiac panel ordered and pending - HIV negative - Viral hepatitis panel negative - BIANCA negative - Stool studies ordered negative for enteric pathogens or WBCs - Sigmoidoscopy showed: "Diffuse abnormal mucosa was found in the descending colon, sigmoid colon, and rectum; The mucosa was edematous, erythematous, friable and ulcerated; multiple biopsies were performed." - Biopsy showed: "acute inflammation of the crypt epithelium, rectum with acute inflammation of crypt epithelium and chronic crypt changes such as distortion and budding, consistent with acute chronic inflammatory bowel disease" (2) Nausea & vomiting Status: Resolved Plan: Nausea 08/02, no vomiting since 07/31. Treatment for abdominal pain as above including Zofran 4 mg every 6 hours as needed. (3) LFT elevation Status: Acute Plan: Downtrending until this morning, now increased to levels similar to admission Viral hepatitis panel negative GI following Trend liver enzymes, will consider further work-up if indicated (4) Leukocytosis Status: Acute Plan: Reduced from 20k --> 12k then increase to 18K 08/05. ESR wnl. CRP at admission elevated at 3.6. Workup for abdominal pain as above Now on oral prednisone which likely is contributory to elevated WBC, to trend Blood cultures 2 as above negative. Colonoscopy showing no evidence of infection, antibiotics were discontinued (5) Fluids/Electrolytes/Nutrition/Prophylaxis Status: Acute Plan: Fluids: PO hydration Electrolytes: K+ 3.0 this morning, give 20 Meq PO BID with additional 20meq one time dose. Follow BMP. Magnesium WNL. Calcium improving. Nutrition: Clear liquid diet, advance as tolerated, Albumin < 2.0 - consult senior computer specialist for dietary advice. DVT Prophylaxis: Lovenox 40mg subQ q24hr GI Prophylaxis: Protonix 40 mg PO daily dw Dr. Espinosa. (Gerda Mendoza MD R1) Problem Qualifiers (1) Abdominal pain: Qualified Code: R10.11 - Right upper quadrant abdominal pain (2) Nausea & vomiting: Qualified Code: R11.2 - Intractable vomiting with nausea, unspecified vomiting type (3) Leukocytosis: Qualified Code: D72.825 - Bandemia Gerda Mendoza MD R1 Aug 05, 2016 10:46 Marcos Espinosa MD Aug 05, 2016 19:43
[2016-08-05 10:53] LABS: BANDS 17 % (0-6); CORRECTED NUCLEATED RBC 1 /100 WBC (0-0); EOSINOPHILS 3 % (0-4); MYELOCYTES 5 % (0-0); NEUTROPHIL # MANUAL DIFF 12.4 TH/MM3 (1.8-7.7); POLYS (SEG NEUTROPHILS) 47 % (16-70); WBC DIFF SAMPLE 100
[2016-08-05 10:54] LABS: PLATELET ESTIMATE SMEAR HIGH (NORMAL); PLATELET MORPHOLOGY NORMAL (NORMAL); SCAN/DIFF FINAL DIFF MANUAL
--- NOTE | 2016-08-05 13:43 | HHI.GIFU ---
Subjective Remarks Resting in bed. States feeling better. No n/v. No abdominal pain. 5 loose stools. Small amount of rectal bleeding. (Magdalena Suggs) Objective Vitals I&O Vital Signs Date Time Temp Pulse Resp B/P Pulse Ox O2 Delivery O2 Flow Rate FiO2 08/05/16 12:19 97.7 89 16 117/60 97 08/05/16 08:45 97.9 97 16 121/75 99 08/05/16 08:26 92 08/05/16 05:00 97.3 94 16 117/68 97 08/05/16 00:00 98.1 76 16 114/59 98 08/04/16 23:51 80 08/04/16 20:00 98.6 96 16 119/65 96 08/04/16 18:33 84 08/04/16 16:00 98.2 94 16 112/69 98 I/O 08/04/16 08/04/16 08/04/16 08/05/16 08/05/16 08/05/16 06:59 14:59 22:59 06:59 14:59 22:59 Intake Total 480 ml 920 ml 720 ml 480 ml Balance 480 ml 920 ml 720 ml 480 ml Intake Oral 480 ml 920 ml 720 ml 480 ml # Voids 2 4 4 3 # Bowel Movements 1 4 4 3 Laboratory Laboratory Tests Test 08/05/16 08:32 White Blood Count 18.0 Red Blood Count 3.86 Hemoglobin 11.5 Hematocrit 33.8 Mean Corpuscular Volume 87.6 Mean Corpuscular Hemoglobin 30.0 Mean Corpuscular Hemoglobin 34.2 Concent Red Cell Distribution Width 13.4 Platelet Count 385 Mean Platelet Volume 6.5 Neutrophils (%) (Auto) 67.3 Lymphocytes (%) (Auto) 20.1 Monocytes (%) (Auto) 7.8 Eosinophils (%) (Auto) 4.7 Basophils (%) (Auto) 0.1 Neutrophils # (Auto) 12.1 Lymphocytes # (Auto) 3.6 Monocytes # (Auto) 1.4 Eosinophils # (Auto) 0.8 Basophils # (Auto) 0.0 CBC Comment AUTO DIFF Differential Total Cells 100 Counted Neutrophils % (Manual) 47 Band Neutrophils % 17 Lymphocytes % 20 Monocytes % 8 Eosinophils % 3 Neutrophils # (Manual) 12.4 Myelocytes 5 Nucleated Red Blood Cells 1 Differential Comment FINAL DIFF MANUAL Platelet Estimate HIGH Platelet Morphology Comment NORMAL Sodium Level 145 Potassium Level 3.0 Chloride Level 109 Carbon Dioxide Level 28.9 Anion Gap 7 Blood Urea Nitrogen 6 Creatinine 0.69 Estimat Glomerular Filtration 145 Rate Random Glucose 91 Calcium Level 7.7 Phosphorus Level 3.2 Total Bilirubin 0.1 Aspartate Amino Transf 121 (AST/SGOT) Alanine Aminotransferase 160 (ALT/SGPT) Alkaline Phosphatase 46 Total Protein 4.9 Albumin 1.9 Date/Time Procedure Status Source Growth 08/01/16 16:50 Cryptosporidium Exam - Final Complete Stool Stool NEGATIVE - NO CRYPTOSPORIDIUM ANTIGEN... 08/01/16 16:50 Stool Pus (PATRICIA) - Final Complete Stool Stool NO WBC'S SEEN 08/01/16 16:50 Giardia Antigen (PATRICIA) - Final Complete Stool Stool NEGATIVE - NO GIARDIA ANTIGEN DETECTE... 08/01/16 16:50 - Final Complete Stool Stool NO ENTERIC PATHOGENS DETECTED BY PCR... 07/31/16 19:30 Aerobic Blood Culture - Final Complete Blood Peripheral NO GROWTH IN 5 DAYS 07/31/16 19:30 Anaerobic Blood Culture - Final Complete Blood Peripheral NO GROWTH IN 5 DAYS Imaging Last Impressions Abdomen X-Ray 08/02/16 0600 Signed Impressions: Service Date/Time: Tuesday, August 02, 2016 09:07 - CONCLUSION: No acute disease. Berry Christine MD FACR Chest X-Ray 07/31/161647 Signed Impressions: Service Date/Time: Sunday, July 31, 2016 17:16 - CONCLUSION: Normal examination for a patient of this age. Dustin Fu MD Abdomen/Pelvis CT 07/31/161647 Signed Impressions: Service Date/Time: Sunday, July 31, 2016 18:43 - CONCLUSION: Normal examination. Dustin Fu MD Physical Exam HEENT: Normocephalic; atraumatic; no jaundice. CHEST: CTA CARDIAC: RRR ABDOMEN: Soft, nondistended, Nontender; no hepatosplenomegaly; bowel sounds are present in all four quadrants. EXTREMITIES: No clubbing, cyanosis, or edema. SKIN: Normal; no rash; no jaundice. WRECKING CRANE ENGINE OPERATOR: No focal deficits; alert and oriented times three. (Magdalena Suggs) Assessment and Plan Plan ASSESSMENT: - Ulcerative colitis, Bloody diarrhea, abdominal pain, intractably nausea/ vomiting x 2-3 months. Unclear if this is infectious vs. inflammatory vs. other process. Symptoms began in May 2016 with bloody diarrhea upwards of 30 times per day and abdominal pain. He was reportedly seen at a hospital in [place] and had a colonoscopy performed which he reports was dx with chew- colitis (ulcerative colitis) but reports that in was an inadequate prep. He was started on a short taper of Prednisone (~5 days) and mesalamine ( Apriso). He took the Apriso as prescribed for about a month but then was not taking as prescribed after that as he developed nausea/vomiting about 1 month ago. He states that he continued to have bloody diarrhea but the frequency decreased to around 10 times per day but the nausea/vomiting seemed to worsen. He was seen by a different GI physician at [facility] [place] last week and at that time his WBCs were 19,000. He had an EGD on 07/30 which noted ulcers in second part of duodenum, ulcers in antrum, erythema and congestion in whole stomach, no esophageal changes. He was prescribed esomeprazole and Carafate. He came to this facility (parents live here) for further evaluation. CT Abd/pelvis (07/31) --> Normal examination. CRP elevated at 3.60.Sed rate 5, Celiac panel pending. Stool cultures negative. +Family hx of UC. Sigmoidoscopy (08/03/16)---> 1. Diffuse abnormal mucosa was found in the descending colon, sigmoid colon, and rectum; The mucosa was edematous, erythematous, friable and ulcerated; multiple biopsies were performed 2. Retroflexion was not performed 3. Revealed no abnormalities of the rectum. Pathology colonic mucosa with mild acute colitis, active chronic colitis. Prednisone. PPI IV BID. Zofran PRN. Will get PPD in anticipation of needing biologicals at d/c. - Elevated LFTs. Etiology unclear. Viral hepatitis panel negative. These are more elevated. This could be related to medications, will get p-ANCA, ASCA. PLAN: - SUNITA - Cont. Prednisone - Cont. PPI - Cont. IVF - Cont. Zofran prn. - LFTs in am - p-ANCA, ASCA (per lab order ANCA and type in [facility][id number] for ASCA) - Supportive care - Rpt. Colonoscopy 1 year - The pt was seen and examined by myself and Dr. Posadas, this note was written on his behalf. (Magdalena Suggs) Physician Comments patient seen and examined agree with above continue present supportive care monitor labs plan for out pt daniellaira (Dale Posadas MD) Magdalena Suggs Aug 05, 2016 13:43 Dale Posadas MD Aug 05, 2016 15:21
[2016-08-05] MEDS ORDERED: TUBERCULIN, PPD 5 UNITS/0.1 ML SYRINGE ID ONE (15:00)
[2016-08-05 15:54] LABS: TISSUE TRANSGLUTAMINASE AB IGG 2 U/mL (())
[2016-08-05] MEDS: ENOXAPARIN SODIUM 40 MG/0.4 ML SYRINGE SQ SCH (21:38)
[2016-08-05] MEDS: PANTOPRAZOLE SOD 40 MG DELAYED RELEASE TAB PO SCH (21:40)
[2016-08-06] VITALS: BP 118/69; PULSE 98; RESP 16; TEMP 97.5; O2SAT 99
[2016-08-06 05:11] VITALS: BP 112/65; PULSE 85; RESP 16; TEMP 97.7; O2SAT 99
[2016-08-06] MEDS: oxyCODONE/ACETAMINOPHEN 5 MG/325 MG TAB PO PRN (06:40)
[2016-08-06 07:01] LABS: AUTOMATED NEUTROPHIL # 13.2 TH/MM3 (1.8-7.7); BASOPHIL % 0.2 % (0.0-2.0); EOSINOPHIL # 1.1 TH/MM3 (0-0.4); EOSINOPHIL % 5.3 % (0.0-4.0); HEMATOCRIT 31.6 % (39.0-51.0); LYMPH % 24.4 % (9.0-44.0); LYMPHOCYTE # 5.1 TH/MM3 (1.0-4.8); MEAN CELL VOLUME 87.3 FL (80.0-100.0); MEAN CORPUSCULAR HGB CONC 34.4 % (32.0-36.0); MONO % 7.1 % (0.0-8.0); PLATELET COUNT 387 TH/MM3 (150-450); RED BLOOD COUNT 3.62 MIL/MM3 (4.50-5.90)
[2016-08-06 07:04] LABS: HEMO FLAGS AUTO DIFF
[2016-08-06 07:26] LABS: ALKALINE PHOSPHATASE 45 U/L (45-117); ALT (GPT) 160 U/L (12-78); ANION GAP 7 MEQ/L (5-15); AST (GOT) 70 U/L (15-37); BICARBONATE 26.8 MEQ/L (21.0-32.0); BLOOD UREA NITROGEN 13 MG/DL (7-18); CHLORIDE 110 MEQ/L (98-107); GLOMERULAR FILTRATION RATE 147 ML/MIN (>89); POTASSIUM 3.1 MEQ/L (3.5-5.1); SODIUM (NA) 144 MEQ/L (136-145); TOTAL BILIRUBIN ADULT 0.1 MG/DL (0.2-1.0)
[2016-08-06 08:00] VITALS: BP 107/58; PULSE 100; RESP 16; TEMP 97.6; O2SAT 98
[2016-08-06] MEDS: POTASSIUM CHLORIDE 10 MEQ CONTROLLED RELEASE TAB PO SCH (08:12)
[2016-08-06] MEDS: PANTOPRAZOLE SOD 40 MG DELAYED RELEASE TAB PO SCH (08:13)
[2016-08-06] MEDS: predniSONE 20 MG TAB PO SCH (08:13)
[2016-08-06] MEDS: SODIUM CHLORIDE 0.9% FLUSH 10 ML FLUSH IV FLUSH SCH (08:15)
[2016-08-06 08:48] VITALS: PULSE 82
[2016-08-06 08:49] LABS: BANDS 14 % (0-6); EOSINOPHILS 4 % (0-4); METAMYELOCYTES 6 % (0-1); MYELOCYTES 3 % (0-0); NEUTROPHIL # MANUAL DIFF 14.1 TH/MM3 (1.8-7.7); POLYS (SEG NEUTROPHILS) 44 % (16-70); WBC DIFF SAMPLE 100
[2016-08-06 08:50] LABS: PLATELET ESTIMATE SMEAR NORMAL (NORMAL); PLATELET MORPHOLOGY NORMAL (NORMAL); SCAN/DIFF FINAL DIFF MANUAL
--- NOTE | 2016-08-06 08:57 | HHI.GIFU ---
Subjective Remarks Resting in bed. Tolerating diet. Had a loose bowel movement, small amount of bleeding. Feeling better. Hoping to go home today. (Magdalena Suggs) Objective Vitals I&O Vital Signs Date Time Temp Pulse Resp B/P Pulse Ox O2 Delivery O2 Flow Rate FiO2 08/06/16 05:11 97.7 85 16 112/65 99 08/06/16 00:00 97.5 98 16 118/69 99 08/05/16 20:45 89 08/05/16 20:00 97.7 101 16 105/75 98 08/05/16 12:19 97.7 89 16 117/60 97 I/O 08/05/16 08/05/16 08/05/16 08/06/16 08/06/16 08/06/16 07:00 15:00 23:00 07:00 15:00 23:00 Intake Total 480 ml 720 ml 400 ml 240 ml Balance 480 ml 720 ml 400 ml 240 ml Intake Oral 480 ml 720 ml 400 ml 240 ml # Voids 3 3 2 2 # Bowel Movements 3 0 0 Laboratory Laboratory Tests Test 08/06/16 05:58 White Blood Count 21.0 Red Blood Count 3.62 Hemoglobin 10.9 Hematocrit 31.6 Mean Corpuscular Volume 87.3 Mean Corpuscular Hemoglobin 30.0 Mean Corpuscular Hemoglobin 34.4 Concent Red Cell Distribution Width 13.0 Platelet Count 387 Mean Platelet Volume 6.7 Neutrophils (%) (Auto) 63.0 Lymphocytes (%) (Auto) 24.4 Monocytes (%) (Auto) 7.1 Eosinophils (%) (Auto) 5.3 Basophils (%) (Auto) 0.2 Neutrophils # (Auto) 13.2 Lymphocytes # (Auto) 5.1 Monocytes # (Auto) 1.5 Eosinophils # (Auto) 1.1 Basophils # (Auto) 0.0 CBC Comment AUTO DIFF Differential Total Cells 100 Counted Neutrophils % (Manual) 44 Band Neutrophils % 14 Lymphocytes % 24 Monocytes % 5 Eosinophils % 4 Neutrophils # (Manual) 14.1 Metamyelocytes 6 Myelocytes 3 Differential Comment FINAL DIFF MANUAL Platelet Estimate NORMAL Platelet Morphology Comment NORMAL Red Cell Morphology Comment NORMAL Sodium Level 144 Potassium Level 3.1 Chloride Level 110 Carbon Dioxide Level 26.8 Anion Gap 7 Blood Urea Nitrogen 13 Creatinine 0.68 Estimat Glomerular Filtration 147 Rate Random Glucose 91 Calcium Level 7.5 Total Bilirubin 0.1 Aspartate Amino Transf 70 (AST/SGOT) Alanine Aminotransferase 160 (ALT/SGPT) Alkaline Phosphatase 45 Total Protein 4.6 Albumin 1.9 Date/Time Procedure Status Source Growth 08/01/16 16:50 Cryptosporidium Exam - Final Complete Stool Stool NEGATIVE - NO CRYPTOSPORIDIUM ANTIGEN... 08/01/16 16:50 Stool Pus (PATRICIA) - Final Complete Stool Stool NO WBC'S SEEN 08/01/16 16:50 Giardia Antigen (PATRICIA) - Final Complete Stool Stool NEGATIVE - NO GIARDIA ANTIGEN DETECTE... 08/01/16 16:50 - Final Complete Stool Stool NO ENTERIC PATHOGENS DETECTED BY PCR... Imaging Last Impressions Abdomen X-Ray 08/02/16 0600 Signed Impressions: Service Date/Time: Tuesday, August 02, 2016 09:07 - CONCLUSION: No acute disease. Berry Christine MD FACR Chest X-Ray 07/31/161647 Signed Impressions: Service Date/Time: Sunday, July 31, 2016 17:16 - CONCLUSION: Normal examination for a patient of this age. Dustin Fu MD Abdomen/Pelvis CT 07/31/161647 Signed Impressions: Service Date/Time: Sunday, July 31, 2016 18:43 - CONCLUSION: Normal examination. Dustin Fu MD Physical Exam HEENT: Normocephalic; atraumatic; no jaundice. CHEST: CTA CARDIAC: RRR ABDOMEN: Soft, nondistended, nontender; no hepatosplenomegaly; bowel sounds are present in all four quadrants. EXTREMITIES: No clubbing, cyanosis, or edema. SKIN: Normal; no rash; no jaundice. 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 (Magdalena Suggs [facility]) Assessment and Plan Plan ASSESSMENT: - Exacerbation Ulcerative colitis, Bloody diarrhea, abdominal pain, intractably nausea/vomiting x 2-3 months. Recent seen at a hospital in [place] and had a colonoscopy performed which he reports was dx with chew- colitis (ulcerative colitis) but reports that in was an inadequate prep. He was started on a short taper of Prednisone (~5 days) and mesalamine ( Apriso). He took the Apriso as prescribed for about a month but then was not taking as prescribed after that as he developed nausea/vomiting about 1 month ago. He states that he continued to have bloody diarrhea but the frequency decreased to around 10 times per day but the nausea/vomiting seemed to worsen. He was seen by a different GI physician at [facility] [place] last week and at that time his WBCs were 19,000. He had an EGD on 07/30 which noted ulcers in second part of duodenum, ulcers in antrum, erythema and congestion in whole stomach, no esophageal changes. He was prescribed esomeprazole and Carafate. He came to this facility (parents live here) for further evaluation. CT Abd/pelvis (07/31) --> Normal examination. CRP elevated at 3.60.Sed rate 5, Celiac panel pending. Stool cultures negative. +Family hx of UC. Sigmoidoscopy (08/03/16)---> 1. Diffuse abnormal mucosa was found in the descending colon, sigmoid colon, and rectum; The mucosa was edematous, erythematous, friable and ulcerated; multiple biopsies were performed 2. Retroflexion was not performed 3. Revealed no abnormalities of the rectum. Pathology colonic mucosa with mild acute colitis, active chronic colitis- consistent with U.C. Prednisone. S/P recent PPD- negative, in anticipation of starting biologicals. Clinically much improved. Pain improving. Still with small amount rectal bleeding. - Elevated LFTs. Etiology unclear. Viral hepatitis panel negative. These are more elevated. This could be related to medications, will get p-ANCA, ASCA. These have improved today. T. Bili 0.1, AST 70, ALT 160, Alk Phosph 45. - Leukocytosis. Likely related to steroids and inflammatory response. Stool studies negative. Afebrile. PLAN: - Okay to d/c home - Cont. Prednisone 40mg po daily until seen for FU - Cont. PPI - S/P PPD testing - Hepatitis panel negative - Humira as outpatient - p-ANCA, ASCA (per lab order ANCA and type in [facility][id number] for ASCA) pending. - Rpt. Colonoscopy 1 year - The pt was seen and examined by myself and Dr. Posadas, this note was written on his behalf. (Magdalena Suggs) Physician Comments Patient seen and examined Agree with above Continue with current supportive care Monitor labs Follow up as outpatient (Dale Posadas MD) Magdalena Suggs Aug 06, 2016 08:57 Dale Posadas MD Aug 06, 2016 17:28
[2016-08-06] MEDS ORDERED: PANT40TA3 PO (09:43)
[2016-08-06] MEDS ORDERED: POTA-243 PO (09:43)
[2016-08-06] MEDS ORDERED: PRED20 PO (09:43)
[2016-08-06] MEDS ORDERED: OXYC1TAB63 PO (09:43)
--- NOTE | 2016-08-06 09:46 | HHI.DCPOC ---
Discharge Care Plan Diagnosis: (1) Inflammatory bowel diseases (IBD) (2) Abdominal pain (3) GERD with esophagitis Goals to Promote Your Health * Pevent worsening of your condition and complications * Maintain your health at the optimal level Directions to Meet Your Goals Follow-up with GI doctor; they can request your records including completed and pending labwork, imaging studies, sigmoidoscopy report, biopsy results and continue management of your condition Take your medications as prescribed Follow your dietary instruction Follow activity as directed Keep your appointments as scheduled Take your immunizations and boosters as scheduled If your symptoms worsen call your PCP, if no PCP go to Urgent Care Center or Emergency Room Smoking is Dangerous to Your Health. Avoid second hand smoke Call the 24-hour hour crisis hotline for domestic abuse at Gerda Mendoza MD R1 Aug 06, 2016 09:46
[2016-08-06] MEDS ORDERED: DOCU-44 PO (09:54)
--- NOTE | 2016-08-06 09:54 | HHI.FPPN ---
Subjective Remarks Patient was seen and examined this morning. He is feeling much better but still tired. He is using the Percocet once per day in the morning when he wakes up but otherwise having no significant toe with pain, which still continues to be in the upper abdomen bilaterally. He denies any fevers, chills, nausea, vomiting , and is tolerating a regular diet and fluids. His stools are now formed. He still has some blood on the tissue when he wipes. (Gerda Mendoza MD R1) Objective Vitals Vital Signs Date Time Temp Pulse Resp B/P Pulse Ox O2 Delivery O2 Flow Rate FiO2 08/06/16 08:00 97.6 100 16 107/58 98 08/06/16 05:11 97.7 85 16 112/65 99 08/06/16 00:00 97.5 98 16 118/69 99 08/05/16 20:45 89 08/05/16 20:00 97.7 101 16 105/75 98 08/05/16 12:19 97.7 89 16 117/60 97 I/O 08/05/16 08/05/16 08/05/16 08/06/16 08/06/16 08/06/16 07:00 15:00 23:00 07:00 15:00 23:00 Intake Total 480 ml 720 ml 400 ml 240 ml Balance 480 ml 720 ml 400 ml 240 ml Intake Oral 480 ml 720 ml 400 ml 240 ml # Voids 3 3 2 2 # Bowel Movements 3 0 0 (Gerda Mendoza MD R1) Result Diagram: 08/06/16 0558 08/06/16 0558 Imaging Last Impressions Abdomen X-Ray 08/02/16 0600 Signed Impressions: Service Date/Time: Tuesday, August 02, 2016 09:07 - CONCLUSION: No acute disease. Berry Christine MD FACR Chest X-Ray 07/31/161647 Signed Impressions: Service Date/Time: Sunday, July 31, 2016 17:16 - CONCLUSION: Normal examination for a patient of this age. Dustin Fu MD Abdomen/Pelvis CT 07/31/161647 Signed Impressions: Service Date/Time: Sunday, July 31, 2016 18:43 - CONCLUSION: Normal examination. Dustin Fu MD Objective Remarks Gen.: Well-nourished appearing young male sitting up in bed, no obvious distress, appears comfortable SKIN: no rashes or bruises. HEENT: Tongue is now normal in appearance. No pharyngeal erythema. Uvula midline. No lymphadenopathy. Mucus membranes moist. CV: Regular rate and rhythm, brisk pulses to each limb. Pulmonary: Clear to auscultation bilaterally. No wheezes or rhonchi. No increased work of breathing. GI: Minimal tenderness to palpation in upper quadrants, no rebound, no guarding , no voluntary guarding, bowel sounds normal. Neurologic: Alert and oriented 3, moving all extremities, gross sensation intact. Strength grossly within normal limits. Medications and IVs Inpatient Medications Ciprofloxacin/ Dextrose 200 ml @ 200 mls/hr Q12H IV Last administered on 03:58; Start 08/01/16 at 04:00; Stop 08/03/16 at 13:03; Status DC Diphenhydramine HCl 25 mg 25 mg ONCE ONCE IV PUSH Last administered on 17:40; Start 07/31/16 at 17:00; Stop 07/31/16 at 17:01; Status DC Enoxaparin Sodium (Lovenox Inj) 40 mg Q24H SQ Last administered on 08/02/16 20 :19; Start 07/31/16 at 22:00; Stop 08/06/16 at 12:07; Status DC Hydromorphone HCl (Dilaudid Pf Inj) 1 mg Q4H PRN IV PAIN SCALE 6 TO 10 Last administered on 07/31/16 22:12; Start 07/31/16 at 20:45; Stop 08/01/16 at 02:38 ; Status DC Hydromorphone HCl 1 mg 1 mg Q3H PRN IV PAIN SCALE 6 TO 10 Last administered on 08/03/16 06:24; Start 08/01/16 at 02:38; Stop 08/06/16 at 12:07; Status DC Levofloxacin/ Dextrose (Levaquin 500 Mg Premix Inj) 100 ml @ 100 mls/hr ONCE ONCE IV Last administered on 07/31/16 19:27; Start 07/31/16 at 19:15; Stop at 20:14; Status DC Metronidazole 100 ml @ 100 mls/hr Q8H IV Last administered on 08/03/16 02:51 ; Start 08/01/16 at 03:00; Stop 08/03/16 at 13:03; Status DC Morphine Sulfate (Morphine Inj) 4 mg ONCE ONCE IV PUSH Last administered on 21:23; Start 07/31/16 at 21:00; Stop 07/31/16 at 21:08; Status DC Naloxone HCl (Narcan Inj) 0.4 mg UNSCH PRN IV SEE LABEL COMMENTS; Start at 20:45; Stop 08/06/16 at 12:07; Status DC Ondansetron HCl (Zofran Inj) 4 mg Q6H PRN IVP NAUSEA OR VOMITING Last administered on 08/03/16 01:22; Start 07/31/16 at 20:45; Stop 08/06/16 at 12:07 ; Status DC Oxycodone/ Acetaminophen (Percocet 5-325 Mg) 1 tab Q4H PRN PO PAIN SCALE 1 TO 5 Last administered on 08/06/16 06:40; Start 07/31/16 at 20:45; Stop 08/06/16 at 12:07; Status DC Pantoprazole Sodium (Protonix) 40 mg Q12HR PO Last administered on 08/06/16 08 :13; Start 08/05/16 at 21:00; Stop 08/06/16 at 12:07; Status DC Pantoprazole Sodium 40 mg 40 mg BID IV Last administered on 08/05/16 08:22; Start 07/31/16 at 21:00; Stop 08/05/16 at 16:22; Status DC Potassium Chloride (KCl 20 Meq Premix Inj) 100 ml @ 50 mls/hr BOLUS ONCE IV Last administered on 08/03/16 09:09; Start 08/03/16 at 08:30; Stop 08/03/16 at 10:29; Status DC Potassium Chloride (KCl) 20 meq ONCE ONCE PO Last administered on 08/05/16 11 :23; Start 08/05/16 at 10:30; Stop 08/05/16 at 10:31; Status DC Prednisone (Deltasone) 40 mg DAILY PO Last administered on 08/06/16 08:13; Start 08/03/16 at 13:00; Stop 08/06/16 at 12:07; Status DC Prochlorperazine Edisylate (Compazine Inj) 5 mg ONCE ONCE IVS Last administered on 07/31/16 17:41; Start 07/31/16 at 17:00; Stop 07/31/16 at 17:01 ; Status DC Sodium Chloride (NS 1000 ml Inj) 1,000 ml @ 999 mls/hr BOLUS ONCE IV Last administered on 07/31/16 21:22; Start 07/31/16 at 21:00; Stop 07/31/16 at 22:00 ; Status DC Sodium Chloride (NS Flush) 2 ml BID IV FLUSH ; Start 07/31/16 at 21:00; Stop at 21:08; Status DC Tuberculin PPD (Ppd Inj) 5 units ONCE ONCE ID ; Start 08/05/16 at 15:00; Stop 08/05/16 at 15:01; Status DC Vancomycin HCl 1000 mg/Sodium Chloride 250 ml @ 250 mls/hr ONCE ONCE IV Last administered on 07/31/16 20:55; Start 07/31/16 at 19:15; Stop 07/31/16 at 20:14 ; Status DC (Gerda Mendoza MD R1) Urinary Catheter: No (Gerda Mendoza MD R1) Vascular Central Line Catheter: No (Gerda Mendoza MD R1) A/P Assessment and Plan 21-year-old male presenting with abdominal pain, nausea/vomiting, bright red blood per rectum with possible inflammatory bowel syndrome. Discharge Planning Will discharge today, patient is to follow-up with his GI physician in [place] upon return on 08/09 (Gerda Mendoza MD R1) Attending Attestation Pt. examined and case discussed with resident physicians I have read the above note and agree with the assessment/plan as discussed with me I was involved in all medical decision making for this patient Marcos Espinosa MD (Marcos Espinosa MD) Problem List: (1) Abdominal pain Status: Acute Plan: Improved. Continue prednisone 40mg PO q day Continue Protonix 40 mg PO BID Reg Diet as tolerated. Pain control as below: -Oxycodone-acetaminophen 5 mg every 4 hours as needed Hospital Course: - GI consulted and appreciate recommendations - Added prednisone 40 mg po qd - Discontinued ciprofloxacin and Flagyl as there is no evidence of infection - Blood cultures NG final - Protonix 40 mg IV twice a day initially, transitioned to by mouth same dose - KUB 08/02 showing no acute disease - Celiac panel ordered and pending - HIV negative - Viral hepatitis panel negative - BIANCA negative - Stool studies ordered negative for enteric pathogens or WBCs - Sigmoidoscopy showed: "Diffuse abnormal mucosa was found in the descending colon, sigmoid colon, and rectum; The mucosa was edematous, erythematous, friable and ulcerated; multiple biopsies were performed." - Biopsy showed: "acute inflammation of the crypt epithelium, rectum with acute inflammation of crypt epithelium and chronic crypt changes such as distortion and budding, consistent with acute chronic inflammatory bowel disease" -PPD was collected, he also had one done in [place], this is in preparation for possible immunomodulators to be started outpatient -He does have p-ANCA and ASCA pending -GI recommends repeat colonoscopy in one year and close GI follow-up (2) Nausea & vomiting Status: Resolved Plan: Nausea 08/02, no vomiting since 07/31. Treatment for abdominal pain as above including Zofran 4 mg every 6 hours as needed. (3) LFT elevation Status: Acute Plan: Downtrended then increased, now back to downtrending on 08/06 This is possibly related to medications that he has been given for his acute symptomatology, p-ANCA and a CEA are pending to rule out autoimmune sources such as PSC Viral hepatitis panel negative GI following Trend liver enzymes, will consider further work-up if indicated (4) Leukocytosis Status: Acute Plan: Reduced from 20k --> 12k, trending up after initiation of steroids. ESR wnl. CRP at admission elevated at 3.6. Workup for abdominal pain as above Now on oral prednisone which likely is contributory to elevated WBC Blood cultures 2 as above negative. Colonoscopy showing no evidence of infection, antibiotics were discontinued (5) Fluids/Electrolytes/Nutrition/Prophylaxis Status: Acute Plan: Fluids: PO hydration Electrolytes: K+ 3.1 this morning, give 20 Meq PO BID. Follow BMP as outpatient. Magnesium WNL. Calcium improving. Likely all related to malabsorption due to acute illness. Nutrition: Diet as tolerated DVT Prophylaxis: Lovenox 40mg subQ q24hr GI Prophylaxis: Protonix 40 mg PO daily dw Dr. Espinosa. (Gerda Mendoza MD R1) Problem Qualifiers (1) Abdominal pain: Qualified Code: R10.11 - Right upper quadrant abdominal pain (2) Nausea & vomiting: Qualified Code: R11.2 - Intractable vomiting with nausea, unspecified vomiting type (3) Leukocytosis: Qualified Code: D72.825 - Bandemia Gerda Mendoza MD R1 Aug 06, 2016 09:54 Marcos Espinosa MD Aug 06, 2016 18:21
--- NOTE | 2016-08-06 13:43 | HHI.DS ---
Discharge Summary Admission Date Jul 31, 2016 at 19:28 Discharge Date: Aug 06, 2016 Admitting Diagnosis intractable abdominal pain; Nausea/vomiting; leukocytosis; sepsis (1) Abdominal pain Diagnosis: Principal Plan: Improved. Continue prednisone 40mg PO q day Continue Protonix 40 mg PO BID Reg Diet as tolerated. Pain control as below: -Oxycodone-acetaminophen 5 mg every 4 hours as needed Hospital Course: - GI consulted and appreciate recommendations - Added prednisone 40 mg po qd - Discontinued ciprofloxacin and Flagyl as there is no evidence of infection - Blood cultures NG final - Protonix 40 mg IV twice a day initially, transitioned to by mouth same dose - KUB 08/02 showing no acute disease - Celiac panel ordered and pending - HIV negative - Viral hepatitis panel negative - BIANCA negative - Stool studies ordered negative for enteric pathogens or WBCs - Sigmoidoscopy showed: "Diffuse abnormal mucosa was found in the descending colon, sigmoid colon, and rectum; The mucosa was edematous, erythematous, friable and ulcerated; multiple biopsies were performed." - Biopsy showed: "acute inflammation of the crypt epithelium, rectum with acute inflammation of crypt epithelium and chronic crypt changes such as distortion and budding, consistent with acute chronic inflammatory bowel disease" -PPD was collected, he also had one done in [place], this is in preparation for possible immunomodulators to be started outpatient -He does have p-ANCA and ASCA pending -GI recommends repeat colonoscopy in one year and close GI follow-up (2) Nausea & vomiting Diagnosis: Principal Plan: Nausea 08/02, no vomiting since 07/31. Treatment for abdominal pain as above including Zofran 4 mg every 6 hours as needed. (3) Leukocytosis Diagnosis: Principal Plan: Reduced from 20k --> 12k, trending up after initiation of steroids. ESR wnl. CRP at admission elevated at 3.6. Workup for abdominal pain as above Now on oral prednisone which likely is contributory to elevated WBC Blood cultures 2 as above negative. Colonoscopy showing no evidence of infection, antibiotics were discontinued (4) LFT elevation Diagnosis: Secondary Plan: Downtrended then increased, now back to downtrending on 08/06 This is possibly related to medications that he has been given for his acute symptomatology, p-ANCA and a CEA are pending to rule out autoimmune sources such as PSC Viral hepatitis panel negative GI following Trend liver enzymes, will consider further work-up if indicated (5) Fluids/Electrolytes/Nutrition/Prophylaxis Diagnosis: Secondary Plan: Fluids: PO hydration Electrolytes: K+ 3.1 this morning, give 20 Meq PO BID. Follow BMP as outpatient. Magnesium WNL. Calcium improving. Likely all related to malabsorption due to acute illness. Nutrition: Diet as tolerated DVT Prophylaxis: Lovenox 40mg subQ q24hr GI Prophylaxis: Protonix 40 mg PO daily [facility] Procedures Sigmoidoscopy 08/03/16 Brief History Previously healthy 21 y/o male up until 2-3 months ago. He says that 2 months ago May was having loose stools with blood in them and was dx with chew- colitis (ulcerative colitis). He was started on prednsione and mesalamine with no improvement. Had colonoscopy at that time with poor prep. Went back, did more tests, WBCs were 19,000 approximately 3 days, endoscopy yesterday at [facility]: Ulcers in second part of duodenum, ulcers in antrum, erythema and congestion in whole stomach, no esophageal changes - in [place]. Took medication and Gatorade and vomited it up. Took sucralfate and esomeprazole staggered. Took Zofran and this helped minimally. Continuous vomiting since -- not bloody, green bile containing and "white fuzzy". Not projectile. Pain is diffuse currently, but yesterday it was bottom right and periumbilical. Lost 40 lbs in last 2 months. Bloody diarrhea for months - bloody the water. No BM for 2 days, last bloody diarrhea was . He also endorsed dizziness or blurry vision, hearing gets muffled mainly when he is standing up. He endorsed dysphagia and decreased by mouth intake, tolerating only applesauce. CBC/BMP: 08/06/16 0558 08/06/16 0558 Significant Findings Laboratory Tests Test 08/04/16 08/05/16 08/06/16 05:54 08:32 05:58 White Blood Count 12.3 TH/MM3 18.0 TH/MM3 21.0 TH/MM3 (4.0-11.0) (4.0-11.0) (4.0-11.0) Red Blood Count 3.51 MIL/MM3 3.86 MIL/MM3 3.62 MIL/MM3 (4.50-5.90) (4.50-5.90) (4.50-5.90) Hemoglobin 10.5 GM/DL 11.5 GM/DL 10.9 GM/DL (13.0-17.0) (13.0-17.0) (13.0-17.0) Hematocrit 30.2 % 33.8 % 31.6 % (39.0-51.0) (39.0-51.0) (39.0-51.0) Mean Platelet Volume 6.7 FL 6.5 FL 6.7 FL (7.0-11.0) (7.0-11.0) (7.0-11.0) Potassium Level 3.3 MEQ/L 3.0 MEQ/L 3.1 MEQ/L (3.5-5.1) (3.5-5.1) (3.5-5.1) Chloride Level 111 MEQ/L 109 MEQ/L 110 MEQ/L (98-107) (98-107) (98-107) Random Glucose 112 MG/DL (74-106) Calcium Level 7.5 MG/DL 7.7 MG/DL 7.5 MG/DL (8.5-10.1) (8.5-10.1) (8.5-10.1) Total Bilirubin 0.1 MG/DL 0.1 MG/DL 0.1 MG/DL (0.2-1.0) (0.2-1.0) (0.2-1.0) Aspartate Amino Transf 38 U/L (15-37) 121 U/L (15-37) 70 U/L (15-37) (AST/SGOT) Alanine Aminotransferase 81 U/L (12-78) 160 U/L (12-78) 160 U/L (12-78) (ALT/SGPT) Alkaline Phosphatase 39 U/L (45-117) Total Protein 4.2 GM/DL 4.9 GM/DL 4.6 GM/DL (6.4-8.2) (6.4-8.2) (6.4-8.2) Albumin 1.7 GM/DL 1.9 GM/DL 1.9 GM/DL (3.4-5.0) (3.4-5.0) (3.4-5.0) Eosinophils (%) (Auto) 4.7 % (0.0-4.0) 5.3 % (0.0-4.0) Neutrophils # (Auto) 12.1 TH/MM3 13.2 TH/MM3 (1.8-7.7) (1.8-7.7) Monocytes # (Auto) 1.4 TH/MM3 1.5 TH/MM3 (0-0.9) (0-0.9) Eosinophils # (Auto) 0.8 TH/MM3 1.1 TH/MM3 (0-0.4) (0-0.4) Band Neutrophils % 17 % (0-6) 14 % (0-6) Neutrophils # (Manual) 12.4 TH/MM3 14.1 TH/MM3 (1.8-7.7) (1.8-7.7) Myelocytes 5 % (0-0) 3 % (0-0) Nucleated Red Blood Cells 1 /100 WBC (0-0) Platelet Estimate HIGH (NORMAL) Blood Urea Nitrogen 6 MG/DL (7-18) Lymphocytes # (Auto) 5.1 TH/MM3 (1.0-4.8) Metamyelocytes 6 % (0-1) Imaging Last Impressions Abdomen X-Ray 08/02/16 0600 Signed Impressions: Service Date/Time: Tuesday, August 02, 2016 09:07 - CONCLUSION: No acute disease. Berry Christine MD FACR Chest X-Ray 07/31/[id number] Signed Impressions: Service Date/Time: Sunday, July 31, 2016 17:16 - CONCLUSION: Normal examination for a patient of this age. Dustin Fu MD Abdomen/Pelvis CT 07/31/161647 Signed Impressions: Service Date/Time: Sunday, July 31, 2016 18:43 - CONCLUSION: Normal examination. Dustin Fu MD PE at Discharge Gen.: Well-nourished appearing young male sitting up in bed, no obvious distress, appears comfortable SKIN: no rashes or bruises. HEENT: Tongue is now normal in appearance. No pharyngeal erythema. Uvula midline. No lymphadenopathy. Mucus membranes moist. CV: Regular rate and rhythm, brisk pulses to each limb. Pulmonary: Clear to auscultation bilaterally. No wheezes or rhonchi. No increased work of breathing. GI: Minimal tenderness to palpation in upper quadrants, no rebound, no guarding , no voluntary guarding, bowel sounds normal. Neurologic: Alert and oriented 3, moving all extremities, gross sensation intact. Strength grossly within normal limits. Hospital Course 21-year-old male presenting with abdominal pain, nausea/vomiting, bright red blood per rectum with possible inflammatory bowel syndrome. His symptoms ultimately started in May 2016. He did have a colonoscopy prior to admission showing possible pancolitis but he had an inadequate prep at that time. He was at that time started on prednisone and mesalamine with no improvement. He did also have an EGD in July 2016 showing ulcers in the second positive on and antrum. At that time he was prescribed a PPI and Carafate. He is visiting his parents in [place] but came to ED due to persistent vomiting and severe abdominal pain. Is also lost 40 pounds in the last 2 months. He does note a family history of ulcerative colitis. He was started on ciprofloxacin, Flagyl, PPI in the ED for possible infectious etiology for/contributor to his symptoms. Prior to admission during ED evaluation, patient received a comprehensive workup to include CXR, EKG, abdominal x-ray, CT abdomen pelvis as well as routine lab work (this also included monoscreen and C. difficile). Initial studies were notable for leukocytosis with left shift and significant bandemia, liver enzyme elevation, and hypoalbuminemia; they were otherwise unremarkable. Stool studies were also collected and over the course of the admission were noted to be negative for infection. Initial imaging studies were unremarkable. Gastroenterology team was consulted and evaluated patient on day 2 of stay, with broad differential initially discussed and workup initiated to include autoimmune studies. The patient's leukocytosis persisted and worsened during initial days of stay and his nausea persisted until 07/31. His diarrhea with bloody stools persisted as well. CRP was also noted to be elevated at 3.60. Further workup including hepatitis panel, HIV, celiac panel were ordered. Celiac studies are pending at discharge but hepatitis and HIV panels were negative. Records were obtained from [place] physician and it was determined that patient required repeat EGD/ sigmoidoscopy by our GI team. Supportive care was continued throughout the hospital stay and included IV fluids. Patient was given a bowel prep and flexible sigmoidoscopy was performed on 08/03 for evaluation of etiology of bloody diarrhea. Sigmoidoscopy results are documented above and in sigmoidoscopy procedure report, Dr Cuauhtemoc performed. Patient was started on prednisone 40mg IV daily on 08/03 after procedure which was transitioned to by mouth medications. He was continued on PPI and IV fluids at that time. His leukocytosis did persist and increased after initiation of prednisone. His LFTs did downtrend but then go back up after procedure, and he was kept another day for monitoring; additionally p-ANCA and ASCA were ordered per GI team. LFTs did improve on morning of discharge 08/06. He developed hypokalemia during the course of the stay which was repleted by mouth as needed and continued at discharge due to likely etiology of malabsorption. We expect this to resolve over time, and he will need his chemistry panel monitored as outpatient. Patient was clinically improved and ready to go home to stay. He was discharged with plans to follow up in [place] with his GI doctor on Wednesday 08/09 ( appointment was already scheduled). He was given by mouth prednisone, Protonix, potassium supplementation and Percocet prior to discharge. Pending studies at discharge (PCP/GI physician in [place] should follow-up): Celiac studies P-ANCA and ASCA Gliadin IgG and IgA Anti-proteinase 3 Anti-myeloperoxidase Pt Condition on Discharge: Stable Discharge Disposition: Discharge Home Discharge Instructions DIET: Follow Instructions for: Gastroesophageal Reflux Additional Diet Instructions: Avoid Activities you can perform: Regular-No Restrictions Follow up Referrals: Gastroenterology - 1 Week New Orders: BASIC METABOLIC PROF - 1 Week New Medications: Docusate Sodium ([place] Stool Softener) 100 Mg Cap 100 MG PO DAILY Take if continuing Percocet as outpatient. PRN CONSTIPATION #10 CAPLET Oxycodone-Acetaminophen (Oxycodone-Acetaminophen) 5-325 mg Tab 1 TAB PO Q4H PRN PAIN 5-10 #20 TAB Pantoprazole (Pantoprazole) 40 Mg Tab 40 MG PO Q12HR #60 TAB Potassium Chloride ER (Klor-Con 10) 10 Meq Tab 30 MEQ PO DAILY #60 TAB Prednisone (Prednisone) 20 Mg Tab 40 MG PO DAILY #30 TAB Discontinued Medications: Esomeprazole DR (Esomeprazole DR) 40 Mg Capdr 40 MG PO DAILY #30 Ref 0 CAP Ondansetron (Zofran) 8 Mg Tab 8 MG PO TID Nausea/Vomiting Ref 0 TAB Sucralfate (Sucralfate) 1 Gm Tab 1 GM PO QID on empty stomach Duodenal ulcer #120 Ref 0 TAB Gerda Mendoza MD R1 Aug 06, 2016 13:43
[2016-08-06] MEDS ORDERED: SKIN TEST RESULT OTHER SCH (15:00)
[2016-08-09 17:54] LABS: MYELOPEROXIDASE LESS THAN 1.0 AI (<1.0); PROTEINASE-3 LESS THAN 1.0 AI (<1.0)
== END 2016-08-06 12:07 | disposition home or self-care (01) | DRG 386 ==
LOC: NEPC 15:30 → NEDA 19:28 → HOCB 22:03
PROVIDERS: ADMIT Family Medicine; ATTEND Family Medicine
PROC: 0DBP8ZX Excision of Rectum, Via Natural or Artificial Opening Endoscopic, Diagnostic (ICD-10-PCS; 2016-08-03)
PROC: 0DBM8ZX Excision of Descending Colon, Via Natural or Artificial Opening Endoscopic, Diagnostic (ICD-10-PCS; principal; 2016-08-03 12:35)
DX: K51.00 Ulcerative (chronic) pancolitis without complications (principal); K90.9 Intestinal malabsorption, unspecified; R79.89 Other specified abnormal findings of blood chemistry; Z84.89 Family history of other specified conditions
CPT/HCPCS: 71010; 74000; 74020; 74177; 80053; 80074; 81001; 82607; 82746; 82784; 82948; 83516; 83605; 83690; 83735; 84100; 84155; 84484; 84630; 85007; 85025; 85027; 85060; 85610; 85652; 85730; 86021; 86038; 86140; 86308; 86703; 87040; 87205; 87328; 87329; 87493; 87506; 88305; 93005; 96361; 96374; 96375; C9113; J0744; J0780; J1170; J1200; J1650; J1956; J2270; J2405; J3370; J3480; J7030; J7050; J7512; Q9967